=== PATIENT | male | born 1955 | race Caucasian/White ===

== ENCOUNTER 2019-08-19 10:40 | Outpatient (CLI) | payer MEDICARE, SELFPAY ==
--- NOTE | 2019-08-19 10:57 | USCV_ITS ---
Chepe Tobias Age: 64 Gender: M : 1955 Exam Date: 08/19/2019 11:01 Ordering Phys: Luis Schmid MD Technologist: Sage Ley Exam Location: [facility] [place] Indication: HISTORY: Lower extremity swelling. PROCEDURES: Bilateral duplex Venous Insufficiency study of the Deep and Superficial systems was carried out according to normal protocol with the patient in supine positon for deep system and dependent position for the superficial system. FINDINGS: All deep veins demonstrated compressibility without evidence of intraluminal thrombus or increased echogenicity. Spectral analysis of Doppler signals demonstrates normal response to compression maneuvers indicating patency without obstruction. Reflux determinations were made with the patient in the dependent position, the weight being on the contralateral leg. Vein measurements and reflux times are listed below were applicable. No notable reflux was seen at this time. The veins were found to be easily compressible with spontaneous blood flow. Non pulsatile flow pattern. CONCLUSIONS No evidence of DVT in the above-mentioned identifiable veins. No significant venous reflux in the above-mentioned veins Dr Nickolas Hood MD [facility] (Electronically Signed) Final Date: 20 August 2019 16:49 S
== END 2019-08-19 10:41 | disposition home or self-care (01) ==
LOC: RAD 10:50
PROVIDERS: Family Provider Family Medicine; PCP Family Medicine; Visit Provider Family Medicine
DX: I83.813 Varicose veins of bilateral lower extremities with pain (principal)
CPT/HCPCS: 93970

== ENCOUNTER 2019-09-15 13:29 | Outpatient (CLI) | payer MEDICARE, SELFPAY ==
--- NOTE | 2019-09-15 13:52 | MR_ITS ---
WS: [id number] MRI LUMBAR SPINE NONCONTRAST TECHNIQUE: Sagittal T1, T2 and STIR imaging. Axial T1 and T2 imaging. CLINICAL INFORMATION: BILATERAL LUMBAR RADICULOPATHY COMPARISON: MRI December 08, 2005 FINDINGS: Mild lumbar curve. No acute compression. Slight anterolisthesis L4 on L5. Disc bulging worse L5-S1 wi th a tiny annular tear. Slight anterolisthesis L4 on L5 measuring 2.7 mm is new since 2005. L1-2: Normal L2-3: Minimal annular bulging. Slight narrowing of the left subarticular recess. Mild left and no sig nificant right foraminal narrowing. Mild facet arthropathy. L3-4: No significant disc bulging. Mild facet arthropathy. Spinal canal and foramen are patent. L4-5: Slight anterolisthesis measuring 2.7 mm. Annular bulging with narrowing of the subarticular rec ess bilaterally. Slight impingement traversing L5 nerve roots. Moderate facet arthropathy. Mild left and no significant right foraminal narrowing. L5-S1: Small broad-based central disc protrusion with slight contact of the traversing left greater t torrez right S1 nerve roots. Spinal canal is patent. Mild facet arthropathy. Visualized pelvic bony structures: Normal. Paravertebral soft tissues: Normal. MR/MR lumbar spine wo con* [id number] IMPRESSION: 1. Mild lumbar curve. No acute compression. No high-grade central canal stenos is. 2. Slight anterolisthesis L4 on L5 measuring 2.7 mm is new since 2005. 3. Mild central canal stenosis L4-5 with slight narrowing of subarticular rece ss bilaterally and encroachment traversing L5 nerve roots. Moderate facet arthr opathy at this level. 4. Broad-based shallow central disc protrusion with slight contact of the left greater than right S1 nerve roots. This is similar in appearance to 2006.
== END 2019-09-15 13:30 | disposition home or self-care (01) ==
LOC: RADWPI 13:30
PROVIDERS: Family Provider Family Medicine; PCP Family Medicine; Visit Provider Family Medicine
DX: M54.16 Radiculopathy, lumbar region (principal); M48.061 Spinal stenosis, lumbar region without neurogenic claudication; M51.26 Other intervertebral disc displacement, lumbar region
CPT/HCPCS: 72148

== ENCOUNTER 2019-12-13 10:24 | Outpatient (RCR) | payer MEDICARE, SELFPAY | END 2019-12-18 23:59 | disposition home or self-care (01) | LOC: SPT 10:24 | PROVIDERS: PCP Family Medicine; Referring Provider Licensed Practical Nurse; Visit Provider Licensed Practical Nurse | DX: M51.16 Intervertebral disc disorders with radiculopathy, lumbar region (principal); M51.17 Intervertebral disc disorders with radiculopathy, lumbosacral region | CPT/HCPCS: 97110; 97161 ==

== ENCOUNTER 2019-12-13 12:53 | Outpatient (CLI) | payer MEDICARE, SELFPAY ==
--- NOTE | 2019-12-13 13:00 | XR_ITS ---
WS: [id number] LUMBAR SPINE FLEXION AND EXTENSION TECHNIQUE: 3 views of the lumbar spine: Lateral neutral, flexion, and extension views. CLINICAL INFORMATION: Low back pain COMPARISON: None. FINDINGS: Slight anterolisthesis L4 on L5 measuring 6 mm on the neutral view. This increases slightly on flexio n to 7.3 mm and decreases on extension to 6.8 mm. Disc space narrowing worse L4-L5 and L5-S1. Chronic appearing anterior wedging T11, T12 and L1. Moderate facet arthropathy L4-L5 and L5-S1. Mild bony fo raminal narrowing L5-S1. Aortic calcification. XR/XR lumbar spine f/e only [id number] IMPRESSION: 1. Grade 1 anterolisthesis L4 on L5 measuring 5.9 mm in the neutral view. Mild instability on flexion-extension. 2. Disc space narrowing worse L4-L5 and L5-S1. 3. Chronic anterior wedging at T11,T12 and L1.
== END 2019-12-13 12:54 | disposition home or self-care (01) ==
LOC: RADWPI 12:57
PROVIDERS: PCP Family Medicine; Visit Provider Licensed Practical Nurse
DX: M54.5 Low back pain (principal); M53.2X6 Spinal instabilities, lumbar region; M48.55XA Collapsed vertebra, not elsewhere classified, thoracolumbar region, initial encounter for fracture; X58.XXXA Exposure to other specified factors, initial encounter; M48.061 Spinal stenosis, lumbar region without neurogenic claudication
CPT/HCPCS: 72120

== ENCOUNTER 2019-12-19 06:00 | Outpatient (RCR) | payer MEDICARE, SELFPAY | END 2020-01-17 23:59 | disposition home or self-care (01) | LOC: SPT 06:00 | PROVIDERS: PCP Family Medicine; Visit Provider Licensed Practical Nurse | DX: M51.17 Intervertebral disc disorders with radiculopathy, lumbosacral region (principal) | CPT/HCPCS: 97110 ==

== ENCOUNTER 2020-02-03 10:52 | Outpatient (CLI) | payer MEDICARE, SELFPAY ==
--- NOTE | 2020-02-03 10:56 | MR_ITS ---
WS: [id number] MRI HEAD WITH CONTRAST TECHNIQUE: Sagittal T1, T2 axial, T2 axial FLAIR, axial susceptibility weighted imaging, axial diffus ion weighted images, and coronal T2 images were obtained. Pre and post-T1 axial and post T1 coronal i mages. ADC and FSPGR images. CLINICAL INFORMATION: INRACRANIAL ARACHNOID CYST COMPARISON: MRI and FINDINGS: No evidence of restricted diffusion to suggest acute ischemia. Ventricular system and basal cisterns are patent. Arachnoid cyst overlying the left frontal lobe extending to the frontoparietal junction. This extends inferiorly to the left middle cranial fossa. No abnormal gadolinium enhancement. Minimal mass effect on the underlying brain parenchyma. No midline shift. No hydrocephalus. No abnormal gado linium enhancement. Stable long-standing atrophy of the left anterior temporal lobe and left lateral frontal lobe including the operculum and insula. Arachnoid cyst measures 3.6 x 2.8 x 6.3 cm No hemosiderin on susceptibly weighted images. Normal optic chiasm and pituitary infundibulum. No abn ormal parenchymal enhancement. Normal dural venous sinuses. MR/MR head wo/w con [id number] IMPRESSION: 1. No evidence of restricted diffusion to suggest acute ischemia. 2. Minimal small vessel changes. Mild parenchymal volume loss. 3. Stable arachnoid cyst overlying the left frontoparietal convexity extending to the left middle cranial fossa unchanged. 4. No significant midline shift. No hydrocephalus. 5. No abnormal intracranial enhancement.
[2020-02-03 11:55] LABS: Blood Urea Nitrogen 12 mg/dL (8-23); Glomerular Filtration Rate 67.6 mL/min (90-130)
== END 2020-02-03 10:53 | disposition home or self-care (01) ==
PROVIDERS: PCP Family Medicine; Visit Provider Family Medicine
DX: G93.0 Cerebral cysts (principal)
CPT/HCPCS: 70553; 82565; 84520; A9579

== ENCOUNTER → 2020-03-28 08:11 | Outpatient (BNVA) | payer MEDICARE, SELFPAY | PROVIDERS: PCP Family Medicine; Referring Provider Family Medicine; Visit Provider Specialist | DX: M51.17 Intervertebral disc disorders with radiculopathy, lumbosacral region (principal); R25.2 Cramp and spasm; G62.9 Polyneuropathy, unspecified; Z87.891 Personal history of nicotine dependence | CPT/HCPCS: 99204 ==

== ENCOUNTER 2020-04-12 07:55 | Outpatient (CLI) | payer MEDICARE, SELFPAY ==
--- NOTE | 2020-04-12 08:00 | MR_ITS ---
WS: [id number] MRI CERVICAL SPINE NONCONTRAST TECHNIQUE: Sagittal T1, T2 and STIR imaging. Axial T2, gradient, and fiesta imaging. CLINICAL INFORMATION: M54.2 Cervicalgia COMPARISON: None. FINDINGS: Mild cervical curve. Straightening of the normal cervical lordosis. Mild disc bulging worse at C5-C6. Cord signal is normal. C2-C3: Normal. C3-C4: Mild disc osteophytic ridging. Mild left and no significant right foraminal narrowing. Mild fa cet arthropathy. Spinal canal is patent. C4-C5: Mild disc bulging with slight effacement of ventral thecal sac. Mild central canal stenosis. M oderate facet arthropathy. Mild right foraminal narrowing. C5-C6: Disc osteophytic complex with endplate ridging. Mild central canal stenosis with slight contac t of the cervical cord. Moderate bilateral bony foraminal narrowing with moderate facet arthropathy. Foraminal narrowing worse on the right. C6-C7: Mild disc bulging with slight effacement of ventral thecal sac. Mild right foraminal narrowing . Mild facet arthropathy. C7-T1: No significant disc bulging. Osteophytic ridging. Spinal canal and foramen are patent. Visualized brain stem structures: Normal. Prevertebral soft tissues: Normal. MR/MR cervical spin wo con* [id number] IMPRESSION: 1. Mild cervical curve. Straightening of the normal cervical lordosis. 2. Cord signal is normal. 3. Mild central canal stenosis C5-C6 with slight contact of the cervical cord. Moderate right greater than left bony foraminal narrowing at this level with m oderate facet arthropathy. 4. Mild central canal stenosis C4-5 with mild shallow central disc bulging. Mo derate right facet arthropathy at this level. 5. Mild right C6-7 bony foraminal narrowing.
--- NOTE | 2020-04-12 08:45 | XR_ITS ---
WS: [id number] Lumbar spine, 3 views, 04/12/2020 Clinical Data: see dx Comparison: Lateral lumbar spine, 12/13/2019. Findings: No compression fractures or subluxation is seen. There is disc space narrowing at L4-L5 and L5-S1. Th e transverse processes and SI joints are normal. There is an anterior subluxation of L4 on L5 of 0.6 cm. There is osteoarthritic spurring of the lower thoracic vertebral bodies. XR/XR lumbar spine 2-3V* [id number] Impression: 1. Anterolisthesis of L4 on L5 unchanged. 2. Degenerative disc narrowing at L4-L5 and L5-S1.
== END 2020-04-12 07:56 | disposition home or self-care (01) ==
LOC: RADSHAW 08:00
PROVIDERS: PCP Family Medicine; Visit Provider Specialist
DX: M54.2 Cervicalgia (principal); M51.17 Intervertebral disc disorders with radiculopathy, lumbosacral region; M48.02 Spinal stenosis, cervical region; M47.812 Spondylosis without myelopathy or radiculopathy, cervical region
CPT/HCPCS: 72100; 72141

== ENCOUNTER → 2020-05-28 11:35 | Outpatient (BNVA) | payer MEDICARE, SELFPAY | PROVIDERS: PCP Family Medicine; Visit Provider Specialist | DX: M51.17 Intervertebral disc disorders with radiculopathy, lumbosacral region (principal); G62.9 Polyneuropathy, unspecified; M43.10 Spondylolisthesis, site unspecified; R25.2 Cramp and spasm; Z87.891 Personal history of nicotine dependence | CPT/HCPCS: 95886; 95909; 99213 ==

== ENCOUNTER → 2020-06-13 12:14 | Outpatient (BNVA) | payer MEDICARE, SELFPAY | PROVIDERS: PCP Family Medicine; Referring Provider Specialist; Visit Provider Anesthesiology Pain Medicine | DX: M51.17 Intervertebral disc disorders with radiculopathy, lumbosacral region (principal); M54.9 Dorsalgia, unspecified; M54.2 Cervicalgia; F17.220 Nicotine dependence, chewing tobacco, uncomplicated | CPT/HCPCS: 99204 ==

== ENCOUNTER → 2020-07-17 10:54 | Outpatient (BNVA) | payer MEDICARE, SELFPAY | PROVIDERS: PCP Family Medicine; Visit Provider Anesthesiology Pain Medicine | DX: M54.9 Dorsalgia, unspecified (principal); M51.17 Intervertebral disc disorders with radiculopathy, lumbosacral region; F17.220 Nicotine dependence, chewing tobacco, uncomplicated | CPT/HCPCS: 99213 ==

== ENCOUNTER → 2020-10-09 10:54 | Outpatient (BNVA) | payer MEDICARE, SELFPAY | PROVIDERS: PCP Family Medicine; Visit Provider Anesthesiology Pain Medicine | DX: G62.9 Polyneuropathy, unspecified (principal); M54.2 Cervicalgia; M43.10 Spondylolisthesis, site unspecified; M51.17 Intervertebral disc disorders with radiculopathy, lumbosacral region; M54.9 Dorsalgia, unspecified; F17.220 Nicotine dependence, chewing tobacco, uncomplicated | CPT/HCPCS: 99214 ==

== ENCOUNTER → 2020-11-28 13:47 | Outpatient (BNVA) | payer MEDICARE, SELFPAY | PROVIDERS: PCP Family Medicine; Visit Provider Specialist | DX: M51.17 Intervertebral disc disorders with radiculopathy, lumbosacral region (principal); F17.220 Nicotine dependence, chewing tobacco, uncomplicated | CPT/HCPCS: 99213 ==

== ENCOUNTER 2021-02-26 12:42 | Outpatient (CLI) | payer MEDICARE, SELFPAY ==
--- NOTE | 2021-02-26 13:31 | MR_ITS ---
WS: [id number] MRI BRAIN WITH AND WITHOUT CONTRAST HISTORY: ARACHNOID CYST COMPARISON: 02/03/2020 TECHNIQUE: Multiplanar imaging performed through the brain with MultiHance 20 ml's IV. No acute infarcts are seen. Gardner-white matter differentiation is well preserved. No susceptibility artifacts or prior lacunar infarcts. Ventricles are normal size. There is a large arachnoid cyst centered in the LEFT middle cranial fossa extending into the frontoparietal junction. There is slight mass effect upon the adjacent brain but no increase in size or enhancement. Cyst measures 6.6 x 4.7 x 4.1 cm. Not significantly changed. Ther e is very slight shift of midline structures to the RIGHT of midline by less than 2 mm. Again noted i s mild atrophy of the anterior LEFT temporal and LEFT frontal lobes. Clivus and pituitary gland are normal. Visualized posterior fossa and brainstem are also normal. No enhancing masses are identified. Blush-like area of enhancement noted in the inferior LEFT tempora l lobe is consistent with a venous angioma. Dural venous sinuses are normal. Paranasal sinuses: Well aerated with no significant disease. Mastoid air cells: Normal. Calvarium and scalp: Normal. MR/MR head wo/w con [id number] IMPRESSION: 1. No enhancing masses or prior infarct. 2. Large chronic LEFT middle cranial fossa arachnoid cyst with slight mass eff ect upon the brain. Long-standing atrophy involving a portion of the LEFT tempo ral and frontal lobes. 3. No hydrocephalus.
[2021-02-26] MEDS: gadobenate dimeglumine 20 mL vial IV (14:17)
== END 2021-02-26 12:43 | disposition home or self-care (01) ==
PROVIDERS: PCP Family Medicine; Visit Provider Family Medicine
DX: G93.0 Cerebral cysts (principal)
CPT/HCPCS: 70553; A9577

== ENCOUNTER → 2021-05-28 12:59 | Outpatient (BNVA) | payer MEDICARE, SELFPAY | PROVIDERS: PCP Family Medicine; Visit Provider Physician Assistant | DX: M51.17 Intervertebral disc disorders with radiculopathy, lumbosacral region (principal) | CPT/HCPCS: 72110 ==

== ENCOUNTER → 2021-06-17 10:48 | Outpatient (BNVA) | payer MEDICARE, SELFPAY | PROVIDERS: PCP Family Medicine; Visit Provider Specialist | DX: G30.9 Alzheimer's disease, unspecified (principal); F02.80 Dementia in other diseases classified elsewhere, unspecified severity, without behavioral disturbance, psychotic disturbance, mood disturbance, and anxiety; G93.0 Cerebral cysts; R25.2 Cramp and spasm; M51.17 Intervertebral disc disorders with radiculopathy, lumbosacral region | CPT/HCPCS: 96116; 99214; 99215 ==

== ENCOUNTER 2021-06-20 06:00 | Outpatient (RCR) | payer MEDICARE, SELFPAY | END 2021-06-26 23:59 | disposition home or self-care (01) | LOC: SPT 06:00 | PROVIDERS: PCP Family Medicine; Referring Provider Physician Assistant; Visit Provider Physician Assistant | DX: M51.37 Other intervertebral disc degeneration, lumbosacral region (principal) | CPT/HCPCS: 97110; 97162 ==

== ENCOUNTER → 2021-09-10 08:40 | Outpatient (BNVA) | payer MEDICARE, SELFPAY | PROVIDERS: PCP Family Medicine; Visit Provider Anesthesiology Pain Medicine | DX: M51.17 Intervertebral disc disorders with radiculopathy, lumbosacral region (principal); M79.604 Pain in right leg; M79.605 Pain in left leg; Z79.891 Long term (current) use of opiate analgesic | CPT/HCPCS: 99214 ==

== ENCOUNTER → 2021-12-12 14:00 | Outpatient (BNVA) | payer MEDICARE, SELFPAY | PROVIDERS: PCP Family Medicine; Visit Provider Physician Assistant | DX: M43.16 Spondylolisthesis, lumbar region (principal) | CPT/HCPCS: 99213 ==

== ENCOUNTER → 2021-12-23 08:55 | Outpatient (BNVA) | payer MEDICARE, SELFPAY | PROVIDERS: PCP Family Medicine; Visit Provider Anesthesiology Pain Medicine | DX: M51.17 Intervertebral disc disorders with radiculopathy, lumbosacral region (principal); M79.604 Pain in right leg; M79.605 Pain in left leg; Z79.891 Long term (current) use of opiate analgesic; Z87.891 Personal history of nicotine dependence | CPT/HCPCS: 99214 ==

== ENCOUNTER 2022-06-23 10:48 | Outpatient (CLI) | payer MEDICARE, SELFPAY ==
--- NOTE | 2022-06-23 11:07 | MR_ITS ---
WS: [id number] MRI HEAD WITH CONTRAST TECHNIQUE: Sagittal T1, T2 axial, T2 axial FLAIR, axial susceptibility weighted imaging, axial diffus ion weighted images, and coronal T2 images were obtained. Pre and post-T1 axial and post T1 coronal i mages. ADC and FSPGR images. CLINICAL INFORMATION: OTHER DISORDERS OF BRAIN COMPARISON: MRI February 26, 2021 and MRI February 03, 2020 FINDINGS: No evidence of restricted diffusion to suggest acute ischemia. Ventricular system and basal cisterns are patent. No change in the previously described arachnoid cyst within the LEFT middle cranial fossa extending to the frontoparietal junction. Associated mild mass effect on the underlying brain parenc hyma unchanged. Arachnoid cyst today measures approximately 4.7 x 3.9 x 6.3 cm AP by transverse by cr aniocaudal. Associated atrophy of the underlying anterior LEFT temporal lobe and LEFT frontal lobes. Incidental benign venous angioma inferior LEFT temporal lobe unchanged. No hydrocephalus. Normal posterior fossa. Normal vascular flow voids at the skull base. Paranasal sinuses are well aera tristian. Mastoid air cells well aerated. No hemosiderin on susceptibly weighted images. Normal optic reji sm and pituitary infundibulum. No abnormal intracranial enhancement. MR/MR head wo/w con [id number] IMPRESSION: 1. Stable arachnoid cyst overlying the left frontoparietal convexity extending to the left middle cranial fossa unchanged measuring 4.7 x 3.9 x 6.3 cm 2. No evidence of restricted diffusion to suggest acute ischemia. 3. Stable benign venous angioma LEFT inferior temporal lobe. 4. No significant interval changes.
[2022-06-23] MEDS: gadobenate dimeglumine 20 mL vial IV (11:52)
== END 2022-06-23 10:49 | disposition home or self-care (01) ==
PROVIDERS: PCP Family Medicine; Visit Provider Family Medicine
DX: G93.0 Cerebral cysts (principal)
CPT/HCPCS: 70553; A9577

== ENCOUNTER 2022-09-09 14:08 | Outpatient (CLI) | payer MEDICARE, SELFPAY ==
--- NOTE | 2022-09-09 | XR_ITS ---
WS: [id number] Exam: XR lumbar spine f/e only [id number] Date/Time of Exam: 09/09/2022 3:03 PM Reason For Exam: SPONDYLOLISTHESIS LUMBAR REGION/ ABSENCE OF SPINAL STABILITY Comparison 05/28/2021. There is degenerative anterolisthesis of L4 on L5 with about 1 cm forward movement of L4 most accentu ated during flexion. No other sign of lumbar instability. Degenerative disc narrowing at L4-5. Facet arthropathy at L4-5 and L5-S1. Remaining posterior elements are intact. XR/XR lumbar spine f/e only [id number] IMPRESSION: 1. 1 cm degenerative anterolisthesis of L4 on L5 most accentuated during flexio n. No other sign of the lumbar instability. 2. Degenerative changes as detailed above.
--- NOTE | 2022-09-09 | MR_ITS ---
WS: [id number] MRI LUMBAR SPINE NONCONTRAST HISTORY: SPINAL STENOSIS COMPARISON: 09/15/2019 TECHNIQUE: Sagittal and axial multisequence imaging is submitted. L4 anterolisthesis by 3 mm similar to the prior study. No fracture or marrow edema. Mild disc desicca tion at L4-5 and L5-S1. Conus terminates normally at L1. L1-L2: Normal. L2-L3: Normal. L3-L4: Mild ligamentum flavum and facet arthritis. No stenosis. L4-L5: Annular disc bulging narrowing the central canal and subarticular recesses. Mild ligamentum fl avum disease and facet arthritis encroaching upon the thecal sac. Very slight impingement upon the tr aversing L5 nerve roots. Similar to the prior study. No progression. L5-S1: Mild annular disc bulging with central disc protrusion and annular fissure. Disc contacts but does not displace the traversing S1 nerve roots. Contact on the nerve roots has slightly improved sin ce 2019. Mild bilateral facet arthritis. Paravertebral soft tissues are negative. MR/MR lumbar spine wo con* [id number] IMPRESSION: 1. Grade 1 anterolisthesis of L4 is unchanged. 2. Minimal central and subarticular recess encroachment at L4-5. Similar to th e prior study. Mild encroachment upon the traversing L5 nerve roots. 3. Central disc protrusion at L5-S1 contacts but does not displace the S1 nerv e roots. Less contact on the nerve roots as compared to 09/15/2019.
== END 2022-09-09 14:09 | disposition home or self-care (01) ==
PROVIDERS: PCP Family Medicine; Visit Provider Anesthesiology Pain Medicine
DX: M43.16 Spondylolisthesis, lumbar region (principal); M51.27 Other intervertebral disc displacement, lumbosacral region
CPT/HCPCS: 72120; 72148

== ENCOUNTER 2023-10-10 13:47 | Inpatient (IN) | payer MEDICARE, SELFPAY ==
[2023-10-10] VITALS (45 sets, daily range): BP systolic 94–149; BP diastolic 44–81; PULSE 56–90; RESP 8–26; TEMP 36.6–36.8; O2SAT 91–100; BMI 32.5; BMI 33.6
--- NOTE | 2023-10-10 13:53 | ECG_ITS ---
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 Measurements Intervals [place] Rate: 74 P: 56 [place]: 161 QRS: 20 QRSD: 92 T: 68 QT: 390 QTc: 434 Interpretive Statements SINUS RHYTHM No previous ECG available for comparison Electronically Signed On 10-10-2023 15:57:38 CDT by Elvis Fuller M.D. [email or web address]
[2023-10-10 13:59] LABS: Basophils # 0.1 10^3/uL (0.0-0.1); Basophils % 0.8 %; Eosinophils # 0.2 10^3/uL (0.0-0.8); Eosinophils % 1.4 %; Hematocrit 38.4 % (37-53); Lymphocytes # 2.1 10^3/uL (0.8-4.8); Lymphocytes % 15.4 %; Mean Corpuscular HGB Conc 31.5 g/dL (30-55); Mean Corpuscular Volume 98.5 fl (82-101); Mean Platelet Volume 10.2 fL (7.4-10.4); Monocytes # 0.9 10^3/uL (0.2-0.9); Monocytes % 6.4 %; Neutrophils # 10.06 10^3/uL (1.8-7.7); Neutrophils % 75.3 %; Nucleated Red Blood Cells % 0 %; Platelet Count 484 10^3/cmm (157-399); Red Cell Distribution Width 11.9 % (12.1-15.1); White Blood Count 13.38 10^3/uL (3.29-11.43)
--- NOTE | 2023-10-10 14:02 | CTR_ITS ---
PROCEDURE INFORMATION: Exam: CT Abdomen And Pelvis With Contrast Exam date and time: 10/10/2023 2:39 PM Age: 68 years old Clinical indication: Abdominal pain; Epigastric; Prior surgery; Surgery date: 6+ months; Surgery type: Gb; Additional info: Epigastric pain TECHNIQUE: Imaging protocol: Computed tomography of the abdomen and pelvis with contrast. Radiation optimization: All CT scans at this facility use at least one of these dose optimization techniques: automated exposure control; mA and/or kV adjustment per patient size (includes targeted exams where dose is matched to clinical indication); or iterative reconstruction. Contrast material: OMNI 350; Contrast volume: 100 ml; Contrast route: INTRAVENOUS (IV); COMPARISON: CT abdomen pelvis w con* [id number] 03/02/2018 5:43 PM RADIATION DOSE METRICS: Total DLP (mGy-cm): 974.79 FINDINGS: Liver: 1.5 cm hemangioma at the liver dome is similar to the prior study. Gallbladder and bile ducts: The gallbladder has been removed. Pancreas: Normal. No ductal dilation. Spleen: Normal. No splenomegaly. Adrenal glands: Normal. No mass. Kidneys and ureters: Bilateral renal cysts have benign features the larger of which measures 16 mm in the left kidney. Stomach and bowel: There is mucosal thickening of the distal stomach and proximal duodenum with associated mesenteric inflammatory stranding. Contour irregularity of the mucosa in this region raises concern for ulcer formation. There is diverticulosis of the colon without evidence of diverticulitis. Appendix: No evidence of appendicitis. Intraperitoneal space: See Stomach and bowel finding. Vasculature: Unremarkable. No abdominal aortic aneurysm. Lymph nodes: There are calcified mediastinal and perihilar lymph nodes consistent with prior granulomatous exposure. Urinary bladder: Unremarkable as visualized. Reproductive: Unremarkable as visualized. Bones/joints: Unremarkable. No acute fracture. Soft tissues: Unremarkable. CT/CT abdomen pelvis w con* [id number] IMPRESSION: Mucosal thickening of the distal stomach and proximal duodenum with associated mesenteric inflammatory stranding consistent with nonspecific gastritis/enteritis. There is contour irregularity of the mucosa in these regions concerning for ulcer formation.
[2023-10-10] MEDS: ondansetron 2 mg/ML SDV 2 mL 4 MG IVP (14:12)
[2023-10-10] MEDS: sodium chloride 0.9% 1,000 ML 999 ML IV (14:12)
--- NOTE | 2023-10-10 14:14 | ED_ITS ---
Documented by User: ALANIS Goodrich 10/10/23 22:14 HPI - Abdominal Pain 2 General: Chief Complaint: Abdominal Pain Stated Complaint: EPIG PAIN Time Seen by Provider: 10/10/23 13:48 Source: patient and family ( - primary historian) Mode of arrival: EMS Limitations: no limitations History of Present Illness: Patient is a 68-year-old male who presents to the emergency department via EMS due to epigastric pain onset intermittently for the past 2 weeks. serves as the primary historian, and was who called the ambulance after she noticed today that he had a loose stool that was black and tarry. She states the patient had been complaining about the pain on and off for the past couple weeks, and when she asked him about his black tarry stool today, he had indicated to her that they have been like this way for a while. He is having associated nausea and vomiting, and has been increasingly weak. states that he is due for a colonoscopy later this year, as his last one 10 years ago was normal. She does note that he is a chronic user of ibuprofen due to a back injury he suffered in [place]. He is also on tramadol for this back pain. Patient has early onset Alzheimer's according to , and is unable to provide any more history or review of systems. denies history of EGD or diagnosed stomach ulcers. Bedside Hemoccult testing on arrival grossly positive. Denies any chest pain, breathing difficulties, palpitations, cardiac history, or any other symptoms at this time. MD elicited complaint: abdominal pain Onset (ago): week(s) Pain Consistency: intermittent Location: Epigastric Radiation: none Migration to: no migration Exacerbating factors: nothing Relieving factors: nothing Associated Symptoms: Reports anorexia, change in stool character, loose stools, melena, nausea and vomiting; Denies chills, dysuria and fever(s) Review of Systems 2 General: Reports: 10 or more systems reviewed and unremarkable except in HPI and below Const: Reports: change in appetite and malaise; Denies: fever(s), chills, change in weight or diaphoresis ENMT: Denies: throat pain or hoarseness Card: Denies: chest pain, palpitations or lightheadedness Resp: Denies: dyspnea, productive cough or wheezing GI: Reports: abdominal pain, nausea, vomiting, change in stool character and melena : Denies: flank pain, difficulty urinating, dysuria, urinary frequency or urinary urgency Musc: Denies: neck pain or back pain Skin/Breast: Denies: rash or new lesions Neuro: Denies: headache(s) or dizziness PFSH ED 2 PFSH: Medical History (Updated 10/12/23 @ 00:01 by YONI Vazquez) Spondylolisthesis, acquired Intervertebral disc disorder with radiculopathy of lumbosacral region Surgical History History of cholecystectomy Family History Family/Other Heart disease Social History Smoking and tobacco/nicotine status: former use of tobacco/nicotine Alcohol intake: former Substance/Drug Use: never Household members: significant other Marital status: Current occupational status: disabled Physical Exam 2 Const: COMMON NORMALS: no acute distress, average body habitus, patient oriented x3, no limitations, healthy appearing, alert and well nourished G ENERAL APPEARANCE: cooperative and comfortable ORIENTATION/CONSCIOUSNESS: Yes awake HENMT: COMMON NORMALS: normocephalic, atraumatic, hearing grossly normal bilaterally, external ears normal, Normal external nose present, Normal nasal mucous membranes and turbinates present and moist oral mucous membranes HEAD & SCALP: normocephalic and atraumatic NOSE: Normal external nose present and Normal nasal mucous membranes and turbinates present EXTERNAL EAR: Yes external ears normal Eye: COMMON NORMALS: Equal, round and reactive pupils present, EOMs intact bilaterally, conjunctivae normal and normal visual benedict by confrontation C ONJUNCTIVA: Yes conjunctivae normal PUPIL: Yes Equal, round and reactive pupils present Neck/C-Spine: COMMON NORMALS: full ROM, supple, no meningeal signs and no JVD Resp: COMMON NORMALS: normal respiratory effort, No retractions, No use of accessory muscles and clear to auscultation bilaterally AUSCULTATION: clear to auscultation bilaterally, no crackles, no rales, no rhonchi and no wheezes Cardio: COMMON NORMALS: no JVD, regular rate, regular rhythm, S1 normal heart sound present, S2 normal heart sound present, No gallops present (Cardio), No clicks present (Cardio), No murmurs present (Cardio), No rub (Cardio) and Peripheral pulses 2+ throughout RATE: regular rate RHYTHM: regular rhythm HEART SOUNDS: S1 normal heart sound present and S2 normal heart sound present PERIPHERAL PULSES: Peripheral pulses 2+ throughout GI: COMMON NORMALS: Normal to inspection, nondistended, normoactive bowel sounds present, Soft to palpation, non-tender, No hepatosplenomegaly present and no masses AUSCULTATION: Yes normoactive bowel sounds PALPATION: Yes Soft to palpation, No Guarding due to palpation present (GI), No Rigid due to palpation and Yes No hepatosplenomegaly present RECTAL EXAM: Yes visual inspection normal, Yes normal sphincter tone, Yes heme positive stool 3+, No hemorrhoids and Yes other (Perirectal dried blood noted) : COMMON NORMALS: Yes no CVA tenderness BLADDER/KIDNEY EXAM: Yes no CVA tenderness Back/Pelvis: COMMON NORMALS: no CVA tenderness Extremity: COMMON NORMALS: normal to inspection and full ROM Neuro: COMMON NORMALS: patient oriented x3, moves all extremities, no focal motor deficits and no sensory deficits noted SENSORIUM/ORIENTATION: Yes alert MENINGEAL SIGNS: Yes no meningeal signs Psych: COMMON NORMALS: mental status grossly normal, cooperative and speech normal SPEECH: Yes normal speech Skin: COMMON NORMALS: no rashes or lesions noted GENERAL SKIN EXAM: no rashes or lesions noted Course 2 Vital Signs: Vital signs: Vital Signs Temperature 98.4 F 10/11/23 10:30 Pulse Rate 81 10/11/23 12:36 Respiratory Rate 22 H 10/11/23 09:45 Blood Pressure 132/74 10/11/23 12:36 Pulse Oximetry 96 10/11/23 12:36 Oxygen Delivery Me thod Room Air 10/11/23 08:31 MDM - Abdominal Pain Lab Data 10/11/23 03:56 10/11/23 03:56 Labs/Radiology: Radiology Impressions Abdomen/Pelvis CT 10/10/23 14:02 IMPRESSION: Mucosal thickening of the distal stomach and proximal duodenum with associated mesenteric inflammatory stranding consistent with nonspecific gastritis/enteritis. There is contour irregularity of the mucosa in these regions concerning for ulcer formation. Laboratory Results WBC 13.38 10^3/uL (3.29-11.43) H 10/10/23 13:53 RBC 3.90 10^6/uL (3.85-5.65) 10/10/23 13:53 Hgb 12.10 g/dL (11.27-16.99) 10/10/23 13:53 Hct 38.4 % (37-53) 10/10/23 13:53 MCV 98.5 fl (82-101) 10/10/23 13:53 MCH 31.0 pg (27-33) 10/10/23 13:53 MCHC 31.5 g/dL (30-55) 10/10/23 13:53 RDW 11.9 % (12.1-15.1) L 10/10/23 13:53 Plt Count 484 10^3/cmm (157-399) H 10/10/23 13:53 MPV 10.2 fL (7.4-10.4) 10/10/23 13:53 Neut % (Auto) 75.3 % 10/10/23 13:53 Lymph % (Auto) 15.4 % 10/10/23 13:53 Gentry % (Auto) 6.4 % 10/10/23 13:53 Eos % (Auto) 1.4 % 10/10/23 13:53 Baso % (Auto) 0.8 % 10/10/23 13:53 Neut # (Auto) 10.06 10^3/uL (1.8-7.7) H 10/10/23 13:53 Lymph # (Auto) 2.1 10^3/uL (0.8-4.8) 10/10/23 13:53 Gentry # (Auto) 0.9 10^3/uL (0.2-0.9) 10/10/23 13:53 Eos # (Auto) 0.2 10^3/uL (0.0-0.8) 10/10/23 13:53 Baso # (Auto) 0.1 10^3/uL (0.0-0.1) 10/10/23 13:53 Nucleated RBC % (auto) 0 % 10/10/23 13:53 Nucleated RBCs # 0.0 /100WBC 10/10/23 13:53 PT 14.50 SECONDS (12.1-14.9) 10/10/23 14:56 INR 1.09 (0.8-1.2) 10/10/23 14:56 APTT 30.1 SECONDS (23.9-36.7) 10/10/23 14:56 Sodium 140 mmol/L (136-145) 10/10/23 13:53 Sodium 142 mmol/L (136-145) 10/10/23 13:53 Potassium 5.7 mmol/L (3.5-5.1) H 10/10/23 13:53 Potassium 6.0 mmol/L (3.5-5.1) H 10/10/23 13:53 Chloride 107 mmol/L (98-107) 10/10/23 13:53 Chloride 109 mmol/L (98-107) H 10/10/23 13:53 Carbon Dioxide 21 mmol/L (22-29) L 10/10/23 13:53 Carbon Dioxide 22 mmol/L (22-29) 10/10/23 13:53 Anion Gap 17.0 (5-19) 10/10/23 13:53 Anion Gap 17.7 (5-19) 10/10/23 13:53 BUN 44 mg/dL (8-23) H 10/10/23 13:53 BUN 44 mg/dL (8-23) H 10/10/23 13:53 Creatinine 1.2 mg/dL (0.7-1.2) 10/10/23 13:53 Creatinine 1.2 mg/dL (0.7-1.2) 10/10/23 13:53 GFR Calculation 60.4 mL/min (90-130) L 10/10/23 13:53 GFR Calculation 60.4 mL/min (90-130) L 10/10/23 13:53 Glucose 106 mg/dL (65-115) 10/10/23 13:53 Glucose 118 mg/dL (65-115) H 10/10/23 13:53 Calculated Osmolality 302 mOsm/kg (285-295) H 10/10/23 13:53 Calculated Osmolality 306 mOsm/kg (285-295) H 10/10/23 13:53 Calcium 9.1 mg/dL (8.5-10.5) 10/10/23 13:53 Calcium 9.2 mg/dL (8.5-10.5) 10/10/23 13:53 Iron 60 ug/dL (59-158) 10/10/23 13:53 TIBC 298 mcg/dl 10/10/23 13:53 % Saturation 20.1 % (20-50) 10/10/23 13:53 Unsat Iron Binding 238 ug/dL (112-347) 10/10/23 13:53 Total Bilirubin 0.3 mg/dL (0.15-1.2) 10/10/23 13:53 AST 16 U/L (0-40) 10/10/23 13:53 ALT 18 U/L (0-41) 10/10/23 13:53 Alkaline Phosphatase 95 U/L (40-130) 10/10/23 13:53 Ammonia 24 umol/L (16-60) 10/10/23 14:56 Total Protein 7.1 g/dL (6.6-8.7) 10/10/23 13:53 Albumin 4.0 g/dL (3.5-5.2) 10/10/23 13:53 Globulin 3.1 g/dL (1.3-4.6) 10/10/23 13:53 Lipase 70 U/L (13-60) H 10/10/23 13:53 Vitamin B12 1557 pg/mL (232-1245) H 10/10/23 13:53 TSH 0.75 uIU/mL (0.27-4.20) 10/10/23 13:53 Blood Type O Positive 10/10/23 14:56 Rho(D) Type Rh positive 10/10/23 14:56 Antibody Screen Negative 10/10/23 14:56 Crossmatch See Detail 10/10/23 14:56 All radiology interpretation(s) finalized by discharge Discharge Plan Discharge Patient Disposition: Admitted As Inpatient Admit Provider: Paul Rodríguez Clinical Impression: Acute upper GI bleed, Hyperkalemia Condition: Stable Discharge Diet: As Directed Discharge Activity: Resume usual activity and Increase activity as tolerated Sign Out Sign Out Data: Patient Sign Out occurred on 10/10/23 at 14:37. Patient's care was discussed, and care was transferred from ALANIS Goodrich to Charlie Saenz DO. Coding Level of Care Code ED Microchip Specialist for Chg Fwd Documented by User: Charlie Saenz DO 10/12/23 06:31 HPI - Abdominal Pain 2 General: Chief Complaint: Abdominal Pain Stated Complaint: EPIG PAIN Time Seen by Provider: 10/10/23 13:48 PFSH ED 2 PFSH: Medical History (Updated 10/12/23 @ 00:01 by YONI Vazquez) Spondylolisthesis, acquired Intervertebral disc disorder with radiculopathy of lumbosacral region Surgical History History of cholecystectomy Family History Family/Other Heart disease Social History Smoking and tobacco/nicotine status: former use of tobacco/nicotine Alcohol intake: former Substance/Drug Use: never Household members: significant other Marital status: Current occupational status: disabled Course 2 Vital Signs: Vital signs: Vital Signs Temperature 98.4 F 10/11/23 10:30 Pulse Rate 81 10/11/23 12:36 Respiratory Rate 22 H 10/11/23 09:45 Blood Pressure 132/74 10/11/23 12:36 Pulse Oximetry 96 10/11/23 12:36 Oxygen Delivery Me thod Room Air 10/11/23 08:31 MDM - Abdominal Pain Medical Decision Making Care assumed from Rajiv THAPA. Patient has acute duodenal bleed. Patient has been typed and crossed started on Protonix keep NPO. Consult surgery for EGD in the morning. Discussed with hospitalist orders written Medical Records I reviewed the patient's medical records. Lab Data I reviewed the patient's lab results. 10/11/23 03:56 10/11/23 03:56 Labs/Radiology: Radiology Impressions Abdomen/Pelvis CT 10/10/23 14:02 IMPRESSION: Mucosal thickening of the distal stomach and proximal duodenum with associated mesenteric inflammatory stranding consistent with nonspecific gastritis/enteritis. There is contour irregularity of the mucosa in these regions concerning for ulcer formation. Laboratory Results WBC 13.38 10^3/uL (3.29-11.43) H 10/10/23 13:53 RBC 3.90 10^6/uL (3.85-5.65) 10/10/23 13:53 Hgb 12.10 g/dL (11.27-16.99) 10/10/23 13:53 Hct 38.4 % (37-53) 10/10/23 13:53 MCV 98.5 fl (82-101) 10/10/23 13:53 MCH 31.0 pg (27-33) 10/10/23 13:53 MCHC 31.5 g/dL (30-55) 10/10/23 13:53 RDW 11.9 % (12.1-15.1) L 10/10/23 13:53 Plt Count 484 10^3/cmm (157-399) H 10/10/23 13:53 MPV 10.2 fL (7.4-10.4) 10/10/23 13:53 Neut % (Auto) 75.3 % 10/10/23 13:53 Lymph % (Auto) 15.4 % 10/10/23 13:53 Gentry % (Auto) 6.4 % 10/10/23 13:53 Eos % (Auto) 1.4 % 10/10/23 13:53 Baso % (Auto) 0.8 % 10/10/23 13:53 Neut # (Auto) 10.06 10^3/uL (1.8-7.7) H 10/10/23 13:53 Lymph # (Auto) 2.1 10^3/uL (0.8-4.8) 10/10/23 13:53 Gentry # (Auto) 0.9 10^3/uL (0.2-0.9) 10/10/23 13:53 Eos # (Auto) 0.2 10^3/uL (0.0-0.8) 10/10/23 13:53 Baso # (Auto) 0.1 10^3/uL (0.0-0.1) 10/10/23 13:53 Nucleated RBC % (auto) 0 % 10/10/23 13:53 Nucleated RBCs # 0.0 /100WBC 10/10/23 13:53 PT 14.50 SECONDS (12.1-14.9) 10/10/23 14:56 INR 1.09 (0.8-1.2) 10/10/23 14:56 APTT 30.1 SECONDS (23.9-36.7) 10/10/23 14:56 Sodium 140 mmol/L (136-145) 10/10/23 13:53 Sodium 142 mmol/L (136-145) 10/10/23 13:53 Potassium 5.7 mmol/L (3.5-5.1) H 10/10/23 13:53 Potassium 6.0 mmol/L (3.5-5.1) H 10/10/23 13:53 Chloride 107 mmol/L (98-107) 10/10/23 13:53 Chloride 109 mmol/L (98-107) H 10/10/23 13:53 Carbon Dioxide 21 mmol/L (22-29) L 10/10/23 13:53 Carbon Dioxide 22 mmol/L (22-29) 10/10/23 13:53 Anion Gap 17.0 (5-19) 10/10/23 13:53 Anion Gap 17.7 (5-19) 10/10/23 13:53 BUN 44 mg/dL (8-23) H 10/10/23 13:53 BUN 44 mg/dL (8-23) H 10/10/23 13:53 Creatinine 1.2 mg/dL (0.7-1.2) 10/10/23 13:53 Creatinine 1.2 mg/dL (0.7-1.2) 10/10/23 13:53 GFR Calculation 60.4 mL/min (90-130) L 10/10/23 13:53 GFR Calculation 60.4 mL/min (90-130) L 10/10/23 13:53 Glucose 106 mg/dL (65-115) 10/10/23 13:53 Glucose 118 mg/dL (65-115) H 10/10/23 13:53 Calculated Osmolality 302 mOsm/kg (285-295) H 10/10/23 13:53 Calculated Osmolality 306 mOsm/kg (285-295) H 10/10/23 13:53 Calcium 9.1 mg/dL (8.5-10.5) 10/10/23 13:53 Calcium 9.2 mg/dL (8.5-10.5) 10/10/23 13:53 Iron 60 ug/dL (59-158) 10/10/23 13:53 TIBC 298 mcg/dl 10/10/23 13:53 % Saturation 20.1 % (20-50) 10/10/23 13:53 Unsat Iron Binding 238 ug/dL (112-347) 10/10/23 13:53 Total Bilirubin 0.3 mg/dL (0.15-1.2) 10/10/23 13:53 AST 16 U/L (0-40) 10/10/23 13:53 ALT 18 U/L (0-41) 10/10/23 13:53 Alkaline Phosphatase 95 U/L (40-130) 10/10/23 13:53 Ammonia 24 umol/L (16-60) 10/10/23 14:56 Total Protein 7.1 g/dL (6.6-8.7) 10/10/23 13:53 Albumin 4.0 g/dL (3.5-5.2) 10/10/23 13:53 Globulin 3.1 g/dL (1.3-4.6) 10/10/23 13:53 Lipase 70 U/L (13-60) H 10/10/23 13:53 Vitamin B12 1557 pg/mL (232-1245) H 10/10/23 13:53 TSH 0.75 uIU/mL (0.27-4.20) 10/10/23 13:53 Blood Type O Positive 10/10/23 14:56 Rho(D) Type Rh positive 10/10/23 14:56 Antibody Screen Negative 10/10/23 14:56 Crossmatch See Detail 10/10/23 14:56 Discharge Plan Discharge Patient Disposition: Admitted As Inpatient Admit Provider: Paul Rodríguez Clinical Impression: Acute upper GI bleed, Hyperkalemia Condition: Stable Discharge Diet: As Directed Discharge Activity: Resume usual activity and Increase activity as tolerated Sign Out Sign Out Data: Patient Sign Out occurred on 10/10/23 at 14:37. Patient's care was discussed, and care was transferred from ALANIS Goodrich to Charlie Saenz DO. Coding Level of Care Code ED Microchip Specialist for [facility]
--- NOTE | 2023-10-10 14:15 | PC.PHAR ---
pts verified pts medications
[2023-10-10 14:24] LABS: Alanine Aminotransferase 18 U/L (0-41); Alkaline Phosphatase 95 U/L (40-130); Aspartate Amino Transferase 16 U/L (0-40); Blood Urea Nitrogen 44 mg/dL (8-23); Calcium 9.2 mg/dL (8.5-10.5); Carbon Dioxide 22 mmol/L (22-29); Chloride 109 mmol/L (98-107); Creatinine Clr Calc Pharmacy 69.5663; Globulin 3.1 g/dL (1.3-4.6); Glomerular Filtration Rate 60.4 mL/min (90-130); Glucose 118 mg/dL (65-115); Lipase 70 U/L (13-60); Osmolality Calculated 306 mOsm/kg (285-295); Sodium 142 mmol/L (136-145); Total Bilirubin 0.3 mg/dL (0.15-1.2); Total Protein 7.1 g/dL (6.6-8.7)
[2023-10-10] MEDS: iohexol 350 mg/mL 500 mL Btl (per mL) IV (14:46)
[2023-10-10 15:20] LABS: INR 1.09 (0.8-1.2)
[2023-10-10 15:21] LABS: Partial Thromboplastin Time 30.1 SECONDS (23.9-36.7)
[2023-10-10 15:25] LABS: Ammonia 24 umol/L (16-60)
[2023-10-10] MEDS: insulin regular-human 100 units/1 mL 10 UNIT IVP (15:27)
[2023-10-10] MEDS: calcium gluconate 0.1 gm/mL 10% SDV 10mL 1 GM IVP (15:27)
[2023-10-10] MEDS: dextrose 10% 250 ML 1000 ML IV (15:28)
[2023-10-10] MEDS: pantoprazole 40 mg SDV 80 MG IVP (15:43)
[2023-10-10] MEDS: sodium bicarbonate 50 MEQ in sodium chloride 0.45% 1,000 ML 100 MEQ IV (15:44)
[2023-10-10] MEDS: albuterol 2.5 mg/3 mL Neb 10 MG INHALATION (15:50)
--- NOTE | 2023-10-10 16:16 | P.CONIM_ITS ---
Providers/Reason For Consult 2 Consulting Physician/Specialty*: General surgery Reason for Consult*: Upper GI bleeding Primary Care Provider: Luis Schmid MD History of Present Illness History of Present Illness Chepe Tobias is a 68 year old male with multiple medical comorbidities and with history of chronic pain requiring multimodal therapy including ibuprofen on a daily basis who presents to the ER complaining of abdominal pain over the last 2 weeks that has worsened over the last 48 hours and melena, per patient report and report patient has been complaining him lack of appetite and upper abdominal pain for 2 weeks but today he felt weak and when he had a bowel movement it was noted to be completely black. Therefore decided to present to the emergency department. A CT scan done in the emergency department show evidence of distal gastric and proximal duodenal thickening with mucosal irregularity concerning for ulcer. Review of Systems 2 General: Reports: 10 or more systems reviewed and unremarkable except in HPI and below Medications/Allergies Home Medications Medication Instructions Recorded Confirmed Last Taken Type acetaminophen 500 mg tablet 1,000 mg PO BID 11/28/19 10/10/23 10/10/23 History (Tylenol Extra Strength) ascorbate calcium (vitamin C) 500 500 mg PO QAM 11/28/19 10/10/23 10/10/23 History mg tablet atenolol 25 mg tablet 25 mg PO QAM 11/28/19 10/10/23 10/10/23 History citalopram 40 mg tablet 40 mg PO QAM 11/28/19 10/10/23 10/10/23 History ferrous gluconate 324 mg (37.5 mg 324 mg PO QAM 11/28/19 10/10/23 10/10/23 History iron) tablet tramadol 50 mg tablet 100 mg PO BID 11/28/19 10/10/23 10/10/23 History celecoxib 100 mg capsule 100 mg PO BID 03/28/20 10/10/23 10/10/23 History irbesartan 300 mg tablet 300 mg PO QAM 09/10/21 10/10/23 10/10/23 History aspirin 325 mg tablet 325 mg PO QAM 10/10/23 10/10/23 10/10/23 History cyanocobalamin (vitamin B-12) 1,000 mcg PO QAM 10/10/23 10/10/23 10/10/23 History 1,000 mcg sublingual tablet gabapentin 600 mg tablet 600 mg PO Q6H 10/10/23 10/10/23 10/10/23 History ibuprofen 200 mg tablet 800 mg PO BID 10/10/23 10/10/23 10/10/23 History loratadine 10 mg tablet (Claritin) 10 mg PO BEDTIME 10/10/23 10/10/23 10/09/23 History memantine 10 mg tablet 10 mg PO QAM 10/10/23 10/10/23 10/10/23 History topiramate 25 mg tablet 25 mg PO BID 10/10/23 10/10/23 10/10/23 History Allergies Allergy/AdvReac Type Severity Reaction Status Date / Time No Known Allergies Allergy Verified 10/10/23 14:15 Current Medications Generic Name Dose Route Start Last Admin Trade Name Freq PRN Reason Stop Dose Admin Dextrose 250 mls @ 1,000 mls/hr 10/10/23 14:35 10/10/23 15:52 D10w IV Infused PRN PRN Infusion HYPOGLYCEMIA Sodium Bicarbonate 50 meq/ 1,050 mls @ 100 mls/hr 10/10/23 14:45 10/10/23 15:44 Sodium Chloride IV 100 mls/hr .[id number] RASHMI Administration PFSH Acute 2 PFSH: Medical History (Updated 10/10/23 @ 16:12 by Charlie Saenz DO) Spondylolisthesis, acquired Intervertebral disc disorder with radiculopathy of lumbosacral region Surgical History History of cholecystectomy Family History Family/Other Heart disease Social History Smoking and tobacco/nicotine status: former use of tobacco/nicotine Alcohol intake: former Substance/Drug Use: never Household members: significant other Marital status: Current occupational status: disabled Vitals/I&O/Wt Last Vital Signs Temp 98.3 F 10/10/23 13:48 Pulse 66 10/10/23 15:53 Resp 18 10/10/23 15:53 BP 127/72 10/10/23 14:19 Pulse Ox 97 10/10/23 15:53 O2 Del Method Room Air 10/10/23 15:53 10/10/23 10/10/23 10/10/23 06:59 14:59 22:59 Intake Total 750 / 750 Balance 750 / 750 Weight last 48 hrs Weight 220 lb Physical Exam 2 Narrative: General : Patient is well developed , no acute distress, oriented x3 Head : Normal cephalic, a-traumatic. Nose : Mucous membranes are without erythema. Lungs : Equal chest rise bilaterally, no use of accessory muscles, trachea is midline. CV : Rate and rhythm are normal. Abdomen : Soft, ND, NT, no g/r/m Extremities : No edema. Upper extremities are normal bilaterally. Back : non-tender to palpation, no CVA tenderness. Data 10/10/23 13:53 10/10/23 13:53 A&P Assessment and plan (1) Acute upper GI bleed: After complete history, physical examination and review of all available clinical data the following is my assessment. Patient has acute upper GI bleeding likely related to ulceration either at the level of the stomach or duodenum which most likely is caused by chronic consumption of ibuprofen. I think in this setting upper endoscopy is indicated for bleeding control. I have discussed the risk and benefits of upper endoscopy with the patient and family member including the risk of perforation of the esophagus, stomach, duodenum which may result in the need of surgical intervention and transfer to higher level of care. There is also risk for rebleeding and I have explained that if this is the case patient will need to be transferred to higher level of care for IR embolization versus GI evaluation. In the interim patient will be admitted to the ICU for monitoring, he will be started on twice a day PPI as well as sucralfate 4 times a day liquid. Plan is to proceed with endoscopy in the morning after resuscitation. Patient and family member agree. All other care per primary team. Coding Level of Care Code 00641 Diagnoses Acute upper GI bleed K92.2
--- NOTE | 2023-10-10 17:19 | P.HP_ITS ---
Providers/Chief Complaint 2 Primary Care Provider: Luis Schmid MD Chief Complaint: EPIG PAIN History of Present Illness Chepe Tobias is a 68 year old male with multiple medical comorbidities and with history of chronic pain requiring multimodal therapy with daily NSAIDs including ibuprofen, celecoxib, history of hypertension also on aspirin 325 mg oral daily who presents to the ER complaining of abdominal pain over the last 2 weeks that has worsened over the last 48 hours and melena, per patient report and report patient has been complaining him lack of appetite and upper abdominal pain for 2 weeks but today he felt weak and when he had a bowel movement it was noted to be completely black. Therefore decided to present to the emergency department. A CT scan done in the emergency department show evidence of distal gastric and proximal duodenal thickening with mucosal irregularity concerning for ulcer. Has had similar complaints in the past around 5 years ago but does not remember if he had been endoscopy at that time. He believes he was treated with medications. Patient received 80 mg of IV Protonix in the ER along with treatment for hyperkalemia. Review of Systems 2 General: Reports: 10 or more systems reviewed and unremarkable except in HPI and below Const: Denies: fever(s), chills, body aches, change in appetite, change in weight, malaise, night sweats, diaphoresis, change in sleep pattern, daytime sleepiness or snoring Eyes: Denies: change in vision, blurry vision, photophobia, eye discomfort or eye discharge ENMT: Denies: throat pain, enlarged tonsils, hoarseness, mouth pain, oral sores, dry mouth, tinnitus, nasal congestion or post nasal drip Card: Denies: chest pain, palpitations, irregular heart rhythm, edema, swelling of feet/ankles, lightheadedness, syncope, pre-syncope, dyspnea on exertion, orthopnea, leg pain with exertion or acrocyanosis Resp: Denies: dyspnea, productive cough, non-productive cough, wheezing, stridor, pain on inspiration, change in phlegm color, hemoptysis or chest congestion GI: Denies: abdominal pain, nausea, vomiting, hematemesis, coffee ground emesis, dysphagia, heartburn, diarrhea, constipation, bloating, GI cramping, change in bowel habits, pain on defecation, hematochezia or melena : Denies: flank pain, difficulty urinating, dysuria, urinary frequency, urinary urgency, urinary hesitancy, urinary dribbling, difficulty starting urination, change in urine stream, nocturia or hematuria Musc: Denies: neck pain, back pain, extremity pain, joint pain, joint swelling, joint redness, joint stiffness or limited range of motion Neuro: Denies: headache(s), numbness in extremities, weakness in extremities, sensory changes, lack of coordination, difficulty walking, frequent falls, dizziness, vertigo, confusion, Slurred speech present, difficulty communicating thoughts or seizure-like activity Psych: Denies: anxiety, depression, mood swings, panic attacks, hopelessness or irritability Endo: Denies: polyuria, polydipsia, tired all the time, cold intolerance, excessive sweating, flushing or heat intolerance [place]/Lymph: Denies: easy bruising or easy bleeding All/Imm: Denies: tongue swelling, facial swelling or acute wheezing Medications/Allergies Home Medications Medication Instructions Recorded Confirmed Last Taken Type acetaminophen 500 mg tablet 1,000 mg PO BID 11/28/19 10/10/23 10/10/23 History (Tylenol Extra Strength) ascorbate calcium (vitamin C) 500 500 mg PO QAM 11/28/19 10/10/23 10/10/23 History mg tablet atenolol 25 mg tablet 25 mg PO QA 11/28/19 10/10/23 10/10/23 History citalopram 40 mg tablet 40 mg PO QAM 11/28/19 10/10/23 10/10/23 History ferrous gluconate 324 mg (37.5 mg 324 mg PO QA 11/28/19 10/10/23 10/10/23 History iron) tablet tramadol 50 mg tablet 100 mg PO BID 11/28/19 10/10/23 10/10/23 History celecoxib 100 mg capsule 100 mg PO BID 03/28/20 10/10/23 10/10/23 History irbesartan 300 mg tablet 300 mg PO QAM 09/10/21 10/10/23 10/10/23 History aspirin 325 mg tablet 325 mg PO QAM 10/10/23 10/10/23 10/10/23 History cyanocobalamin (vitamin B-12) 1,000 mcg PO QAM 10/10/23 10/10/23 10/10/23 History 1,000 mcg sublingual tablet gabapentin 600 mg tablet 600 mg PO Q6H 10/10/23 10/10/23 10/10/23 History ibuprofen 200 mg tablet 800 mg PO BID 10/10/23 10/10/23 10/10/23 History loratadine 10 mg tablet (Claritin) 10 mg PO BEDTIME 10/10/23 10/10/23 10/09/23 History memantine 10 mg tablet 10 mg PO QAM 10/10/23 10/10/23 10/10/23 History topiramate 25 mg tablet 25 mg PO BID 10/10/23 10/10/23 10/10/23 History Allergies Allergy/AdvReac Type Severity Reaction Status Date / Time No Known Allergies Allergy Verified 10/10/23 14:15 PFSH Acute 2 PFSH: Medical History (Updated 10/10/23 @ 16:12 by Charlie Saenz DO) Spondylolisthesis, acquired Intervertebral disc disorder with radiculopathy of lumbosacral region Surgical History History of cholecystectomy Family History Family/Other Heart disease Social History Smoking and tobacco/nicotine status: former use of tobacco/nicotine Alcohol intake: former Substance/Drug Use: never Household members: significant other Marital status: Current occupational status: disabled Vitals/I&O/Wt Last Vital Signs Temp 98.3 F 10/10/23 13:48 Pulse 66 10/10/23 17:17 Resp 18 10/10/23 17:15 BP 105/63 10/10/23 17:17 Pulse Ox 100 10/10/23 17:15 O2 Del Method Room Air 10/10/23 15:53 10/10/23 10/10/23 10/10/23 06:59 14:59 22:59 Intake Total 750 / 750 Balance 750 / 750 Weight last 48 hrs Weight 99.79 kg Physical Exam 2 Narrative: General: No acute distress, AO x3, Dehydrated, diaphoretic HEENT: PERRLA, pupils bilaterally equal and reactive Chest: Normal vesicular breath sounds, no added sounds, equal good air entry bilaterally CVS: S1-S2 regular, no murmurs, no tachycardia, no gallops, no rubs Abdomen: Soft, nontender, no organomegaly, bowel sounds present Neuro: No focal deficits, no facial deformity, AO x3, power 5/5 in all limbs Data 10/10/23 13:53 10/10/23 13:53 A&P Assessment and plan (1) Acute upper GI bleed: Associated with melena. Repeat hemoglobin in evening. Consult surgery for possible endoscopy. NPO. IV Protonix twice daily, Carafate before meals and at bedtime. IV fluids with normal saline at 75 cc/h. Check iron panel, vitamin B12, folate levels. CT abdomen pelvis showing mild gastroenteritis. Mild leukocytosis. Most likely in setting of GI bleed. For now we will cover with Zosyn. Stool studies if possible. (2) Hyperkalemia: Received cocktail of medications including calcium gluconate, sodium bicarb, insulin 10 units along with D50 in the ER. Repeat BMP in few hours. Will treat accordingly. (3) Low back pain radiating to both legs: Plan Hypertension: Goal blood pressure less than 140/90 mmHg. Blood pressure soft. Hold off on antihypertensives for now including ARB and home dose of atenolol. Will monitor for tachycardia. Keep mean artery pressure over 65. Full code NPO. SCDs for DVT prophylaxis. Attestations 2 Medical Necessity Statement*: Admission for more than 2 midnights for management of melena, GI bleed leading to hypotension in a patient with chronic NSAIDs Diagnoses Acute upper GI bleed K92.2 Hyperkalemia E87.5 Low back pain radiating to both legs M54.50; M79.604; M79.605
[2023-10-10 17:35] LABS: Add Urine Microscopic? YES; Bilirubin Urine Neg (Negative); Blood Urine Neg (Negative); Glucose Urine UA Norm (Normal); Ketones Urine Negative (Negative); Leukocyte Esterase Urine Negative (Negative); Nitrate Urine Negative (Negative); Protein Urine 1+ (Negative); Specific Gravity, Urine 1.005 (1.005-1.030); Urine Appearance Clear (CLEAR); Urine Color Yellow (Yellow); Urobilinogen Urine Neg (Negative); pH Urine 5 (5-7)
[2023-10-10 17:36] LABS: RBC Urine RARE /hpf (0-2); Squamous Epithelial Cell Urine 0-4 /hpf (0-5); WBC Urine 0-4 /hpf (0-5)
[2023-10-10 17:37] LABS: Add Urine Culture? No; Bacteria Urine TRACE /hpf; Mucus Urine 1+ /hpf
[2023-10-10] MEDS: sodium chloride 0.9% 1,000 ML 75 ML IV (17:39)
[2023-10-10 17:59] LABS: Anion Gap 17.7 (5-19); Blood Urea Nitrogen 44 mg/dL (8-23); Calcium 9.1 mg/dL (8.5-10.5); Carbon Dioxide 21 mmol/L (22-29); Chloride 107 mmol/L (98-107); Creatinine Clr Calc Pharmacy 69.5663; Glomerular Filtration Rate 60.4 mL/min (90-130); Glucose 106 mg/dL (65-115); Iron 60 ug/dL (59-158); Osmolality Calculated 302 mOsm/kg (285-295); Percent Saturation 20.1 % (20-50); Potassium 5.7 mmol/L (3.5-5.1); Sodium 140 mmol/L (136-145); Thyroid Stimulating Hormone 0.75 uIU/mL (0.27-4.20); Total Iron Binding Capacity 298 mcg/dl; Unsaturated Iron Binding 238 ug/dL (112-347)
[2023-10-10 18:04] LABS: Vitamin B12 1557 pg/mL (232-1245)
[2023-10-10 19:54] LABS: Hematocrit 33.5 % (37-53)
[2023-10-10 20:23] LABS: Glucose Point of Care 106 mg/dL (70-110)
[2023-10-10] MEDS: gabapentin 300 mg Capsule 600 MG PO (20:27)
[2023-10-10] MEDS: sucralfate 1 gm/10 mL Oral Liq UDC PO (20:27)
[2023-10-10] MEDS: TRAMadol 50 mg Tablet 100 MG PO (20:27)
[2023-10-10] MEDS: topiramate 25 mg Tablet PO (20:27)
[2023-10-10] MEDS: piperacillin-tazobactam 3.375 GM in sodium chloride 0.9% (plus) 50 ML IV (20:32)
--- NOTE | 2023-10-10 21:45 | PC.NURSE ---
Maintenance Fluid The following orders active for maintenance fluids: NS @ 30 ml/hr, sodium bicarb at 100 ml/hr, and NS @75 ml/hr. Dr. Jackson contacted and order received to administer NS @ 30 ml/hr only. See MAR for details.
[2023-10-10] MEDS: sodium chloride 0.9% 100 mL Bag 50 ML IV (22:18)
[2023-10-11] VITALS (54 sets, daily range): BP systolic 83–166; BP diastolic 45–98; PULSE 56–81; RESP 12–22; TEMP 36.6–36.9; O2SAT 90–100; BMI 33.6
[2023-10-11 04:35] LABS: Basophils # 0.1 10^3/uL (0.0-0.1); Basophils % 0.8 %; Eosinophils # 0.2 10^3/uL (0.0-0.8); Eosinophils % 2.1 %; Hematocrit 33.1 % (37-53); Lymphocytes # 2.3 10^3/uL (0.8-4.8); Lymphocytes % 22.7 %; Mean Corpuscular Hemoglobin 31.7 pg (27-33); Mean Corpuscular Volume 99.1 fl (82-101); Monocytes # 0.7 10^3/uL (0.2-0.9); Monocytes % 6.8 %; Neutrophils # 6.86 10^3/uL (1.8-7.7); Neutrophils % 66.9 %; Nucleated Red Blood Cells % 0 %; Platelet Count 332 10^3/cmm (157-399); Red Blood Count 3.34 10^6/uL (3.85-5.65); Red Cell Distribution Width 12.2 % (12.1-15.1); White Blood Count 10.26 10^3/uL (3.29-11.43)
[2023-10-11] MEDS: pantoprazole 40 mg SDV IVP (04:47)
[2023-10-11] MEDS: piperacillin-tazobactam 3.375 GM in sodium chloride 0.9% (plus) 50 ML IV (04:47)
[2023-10-11 04:53] LABS: Estmated Average Glucose 100; Hemoglobin A1C 5.1 % (4.0-6.0)
[2023-10-11 04:56] LABS: Alanine Aminotransferase 14 U/L (0-41); Albumin Level 3.5 g/dL (3.5-5.2); Alkaline Phosphatase 75 U/L (40-130); Anion Gap 13.2 (5-19); Aspartate Amino Transferase 12 U/L (0-40); Blood Urea Nitrogen 36 mg/dL (8-23); Calcium 8.4 mg/dL (8.5-10.5); Carbon Dioxide 24 mmol/L (22-29); Chloride 109 mmol/L (98-107); Creatinine Clr Calc Pharmacy 84.9513; Globulin 2.5 g/dL (1.3-4.6); Glomerular Filtration Rate 74.5 mL/min (90-130); Glucose 91 mg/dL (65-115); Magnesium 2.2 mg/dL (1.7-2.3); Osmolality Calculated 302 mOsm/kg (285-295); Phosphorus 2.4 mg/dL (2.5-4.5); Potassium 4.2 mmol/L (3.5-5.1); Sodium 142 mmol/L (136-145); Total Bilirubin 0.6 mg/dL (0.15-1.2)
[2023-10-11 04:59] LABS: Cholesterol 136 mg/dL (0-200); HDL Cholesterol 20 mg/dL (60-100); LDL Cholesterol Calculated 87 mg/dL (50-129); LDL HDL Ratio 4.35 RATIO (0.00-3.22); Triglycerides 145 mg/dL (0-150)
[2023-10-11 05:09] LABS: Folate Level 8.3 ng/mL (4.5-32.2)
[2023-10-11] MEDS: citalopram 20 mg Tablet 40 MG PO (06:07)
[2023-10-11] MEDS: memantine 5 mg tablet 10 MG PO (06:07)
[2023-10-11] MEDS: sucralfate 1 gm/10 mL Oral Liq UDC PO ×2 (06:07→10:55)
--- NOTE | 2023-10-11 06:40 | PC.NURSE ---
Atenolol Patient's heart rate ranging from 52-65 with a current blood pressure of 107/59. Dr. Jackson contacted and order received to hold the 0600 dose of 25 mg atenolol PO. Dose held.
[2023-10-11] MEDS: gabapentin 300 mg Capsule 600 MG PO (08:13)
[2023-10-11] MEDS: topiramate 25 mg Tablet PO (08:13)
[2023-10-11] MEDS: TRAMadol 50 mg Tablet 100 MG PO (08:13)
--- NOTE | 2023-10-11 08:23 | ANES.PREANE2 ---
Pre-Anesthetic Assessment Height/Weight: Height 1.75 m Weight 103.419 kg Temp Pulse Resp BP Pulse Ox O2 Del Method 97.8 F 65 16 122/73 98 Room Air 10/11/23 07:15 10/11/23 08:15 10/11/23 08:15 10/11/23 08:15 10/11/23 08:15 10/11/23 06:15 Operation Date: 10/11/23 11:20 Proposed Procedures p EGD(Not Applicable) - Aiden Wooten MD Familial anesthetic complications: None Was Beta Sanju taken within 24 hours: N/A Was Clonidine taken within 24 hours: N/A Last intake: > 8hrs, denies nausea or any vomiting Social No alcohol and No tobacco Exam alert, oriented x 3, clear to auscultation bilaterally and regular rate & rhythm Airway Mallampati: Class IV Dentition: chipped Pulmonary Sleep Apnea CV/HEM Hypertension Anesthetic Plan ASA status: 3 Anesthesia: MAC Risk of > 500 ml blood loss (7ml/kg in children): No Medications/Allergies Home Medications Medication Instructions Recorded Confirmed Last Taken Type acetaminophen 500 mg tablet 1,000 mg PO BID 11/28/19 10/10/23 10/10/23 History (Tylenol Extra Strength) ascorbate calcium (vitamin C) 500 500 mg PO QAM 11/28/19 10/10/23 10/10/23 History mg tablet atenolol 25 mg tablet 25 mg PO QAM 11/28/19 10/10/23 10/10/23 History citalopram 40 mg tablet 40 mg PO QAM 11/28/19 10/10/23 10/10/23 History ferrous gluconate 324 mg (37.5 mg 324 mg PO QAM 11/28/19 10/10/23 10/10/23 History iron) tablet tramadol 50 mg tablet 100 mg PO BID 11/28/19 10/10/23 10/10/23 History celecoxib 100 mg capsule 100 mg PO BID 03/28/20 10/10/23 10/10/23 History irbesartan 300 mg tablet 300 mg PO QAM 09/10/21 10/10/23 10/10/23 History aspirin 325 mg tablet 325 mg PO QAM 10/10/23 10/10/23 10/10/23 History cyanocobalamin (vitamin B-12) 1,000 mcg PO QAM 10/10/23 10/10/23 10/10/23 History 1,000 mcg sublingual tablet gabapentin 600 mg tablet 600 mg PO Q6H 10/10/23 10/10/23 10/10/23 History ibuprofen 200 mg tablet 800 mg PO BID 10/10/23 10/10/23 10/10/23 History loratadine 10 mg tablet (Claritin) 10 mg PO BEDTIME 10/10/23 10/10/23 10/09/23 History memantine 10 mg tablet 10 mg PO QAM 10/10/23 10/10/23 10/10/23 History topiramate 25 mg tablet 25 mg PO BID 10/10/23 10/10/23 10/10/23 History Allergies Allergy/AdvReac Type Severity Reaction Status Date / Time No Known Allergies Allergy Verified 10/10/23 14:15 Current Medications Generic Name Dose Route Start Last Admin Trade Name Freq PRN Reason Stop Dose Admin Atenolol 25 mg 10/11/23 06:00 10/11/23 06:40 Atenolol 50 Mg Tablet PO Not Given QAM RASHMI Citalopram Hydrobromide 40 mg 10/11/23 06:00 10/11/23 06:07 Citalopram 20 Mg Tablet PO 40 mg QAM RASHMI Administration Gabapentin 600 mg 10/10/23 21:00 10/11/23 08:13 Gabapentin 300 Mg Capsule PO 600 mg TID RASHMI Administration Dextrose 250 mls @ 1,000 mls/hr 10/10/23 14:35 10/10/23 15:52 D10w IV Infused PRN PRN Infusion HYPOGLYCEMIA Sodium Chloride 1,000 mls @ 30 mls/hr 10/10/23 17:25 10/10/23 21:30 Sodium Chloride 0.9% IV 10/11/23 17:25 30 mls/hr .Q24H RASHMI Infusion Piperacillin Sod/Tazobactam 50 mls @ 12.5 mls/hr 10/10/23 21:00 10/11/23 04:47 Sod 3.375 gm/ Sodium Chloride IV 12.5 mls/hr Q8H RASHMI Administration Memantine 10 mg 10/11/23 06:00 10/11/23 06:07 Memantine 5 Mg Tablet PO 10 mg QAM RASHMI Administration Pantoprazole Sodium 40 mg 10/11/23 04:00 10/11/23 04:47 Pantoprazole 40 Mg Sdv IVP 40 mg Q12H RASHMI Administration Sodium Chloride 50 ml 10/10/23 20:41 10/10/23 22:18 Sodium Chloride 0.9% 100 Ml Bag IV 10/11/23 20:41 50 ml PRN PRN Administration Blood transfusion prime and flush Sucralfate 1 gm 10/10/23 21:00 10/11/23 06:07 Sucralfate 1 Gm/10 Ml Oral Liq Udc PO 1 gm AC&BEDTIME RASHMI Administration Topiramate 25 mg 10/10/23 20:01 10/11/23 08:13 Topiramate 25 Mg Tablet PO 25 mg BID RASHMI Administration Tramadol HCl 100 mg 10/10/23 20:01 10/11/23 08:13 Tramadol 50 Mg Tablet PO 100 mg BID RASHMI Administration [facility] Anesthesia Medical History (Updated 10/10/23 @ 16:12 by Charlie Saenz DO) Spondylolisthesis, acquired Intervertebral disc disorder with radiculopathy of lumbosacral region Surgical History History of cholecystectomy Family History Family/Other Heart disease Social History Smoking and tobacco/nicotine status: former use of tobacco/nicotine Alcohol intake: former Substance/Drug Use: never Household members: significant other Marital status: Current occupational status: disabled Data Anesthesia 10/11/23 03:56 10/11/23 03:56 Short CBC 10/10/23 10/10/23 10/11/23 Range/Units 13:53 19:25 03:56 WBC 13.38 H 10.26 (3.29-11.43) 10^3/uL Hgb 12.10 10.60 L 10.60 L (11.27-16.99) g/dL Hct 38.4 33.5 L 33.1 L (37-53) % MCV 98.5 99.1 (82-101) fl Plt Count 484 H 332 D (157-399) 10^3/cmm Neut % (Auto) 75.3 66.9 % Neut # (Auto) 10.06 H 6.86 (1.8-7.7) 10^3/uL BMP 10/10/23 10/10/23 10/10/23 13:53 13:53 13:53 Sodium 142 140 Potassium 6.0 H 5.7 H Chloride 109 H Carbon Dioxide BUN Creatinine Glucose Calcium 10/10/23 10/10/23 10/10/23 13:53 13:53 13:53 Sodium Potassium Chloride 107 Carbon Dioxide 22 21 L BUN 44 H 44 H Creatinine 1.2 Glucose Calcium 10/10/23 10/10/23 10/10/23 13:53 13:53 13:53 Sodium Potassium Chloride Carbon Dioxide BUN Creatinine 1.2 Glucose 118 H 106 Calcium 9.2 9.1 10/11/23 03:56 Sodium 142 Potassium 4.2 Chloride 109 H Carbon Dioxide 24 BUN 36 H Creatinine 1.0 Glucose 91 Calcium 8.4 L Liver Function 10/10/23 10/11/23 Range/Units 13:53 03:56 Total Bilirubin 0.3 0.6 (0.15-1.2) mg/dL AST 16 12 (0-40) U/L ALT 18 14 (0-41) U/L Alkaline Phosphatase 95 75 (40-130) U/L Albumin 4.0 3.5 (3.5-5.2) g/dL Urine 10/10/23 Range/Units 16:55 Urine Color Yellow (Yellow) Urine Appearance Clear (CLEAR) Urine pH 5 (5-7) Ur Specific [place] 1.005 (1.005-1.030) Urine Protein 1+ H (Negative) Urine Glucose (UA) Norm (Normal) Urine Ketones Negative (Negative) Urine Nitrate Negative (Negative) Urine Bilirubin Neg (Negative) Ur Leukocyte Esterase Negative (Negative) Urine RBC Rare (0-2) /hpf Urine WBC 0-4 H (0-5) /hpf Blood Bank 10/10/23 14:56 Blood Type O Positive Rho(D) Type Rh positive Antibody Screen Negative Coags 10/10/23 14:56 PT 14.50 INR 1.09 APTT 30.1 Cardiac Studies: No Data to Display
[2023-10-11] MEDS: EPINEPHrine 1 mg/mL INJ XX (10:24)
--- NOTE | 2023-10-11 10:29 | PM.MISC ---
Miscellaneous Note Purpose of Documentation: Update on Patient care Note: Upper endoscopy was done today. It showed evidence of extensive gastritis with erosions, in addition, there was a very large duodenal ulcer right past the area of the bulb, there was significant fibrinous material at the base of the ulcer and there was an exposed vessel. Tissue appeared very friable around the ulcer, I attempted injection of epinephrine in 4 quadrants around the exposed vessel but was unable to clip the vessel. Due to these findings I would recommend immediate transfer to higher level of care for evaluation by GI for repeat endoscopy and bleeding control. Patient has a 90 to 100% chance of rebleeding if no additional intervention is undertaken. In the meantime we will continue with high-dose PPI and will continue Carafate 4 times a day. Plan was communicated with ICU team. Family member was made aware.
--- NOTE | 2023-10-11 10:30 | ANE.PACU2 ---
Inpatient post-anesthesia follow up: Airway intact: Yes Vital signs: Temperature 98.4 F Pulse Rate [Orthos tatic 82 Standing] Pulse Rate [Orthos tatic 74 Sitting] Pulse Rate [Orthos tatic Lying] 66 Pulse Rate 81 Respiratory Rate 22 Blood Pressure [Or thostatic 99/70 Standing] Blood Pressure [Or thostatic 119/71 Sitting] Blood Pressure [Or thostatic 105/63 Lying] Blood Pressure 132/74 Pulse Oximetry 96 Oxygen Delivery Me thod Room Air Oxygen Flow Rate Fraction of Inspir ed Oxygen Hydration adequate: Yes Nausea and vomiting: No Pain level: 1 Mental status: Baseline
--- NOTE | 2023-10-11 11:18 | PM.DCS ---
Discharge Providers Date of Admission: 10/10/23 15:38 Date of Discharge: October 11, 2023 Attending Provider at Admission: Paul Rodríguez MD Attending Provider at Discharge: Paul Rodríguez MD Primary Care Provider: Luis Schmid MD Diagnoses at Discharge Discharge Diagnosis (1) Acute upper GI bleed: Status: Acute (2) Hyperkalemia: Status: Acute (3) Low back pain radiating to both legs: Status: Acute Reason for Visit Reason for Visit: EPIG PAIN Discharge Data Studies Completed and Pending Completed Studies During Hospitalization Category Date Time Status CT abdomen pelvis w con* [id number] Urgent Cat Scan 10/10/23 14:02 Completed Pending at discharge Category Date Time Status C.Diff PCR (Lab) Routine Lab 10/10/23 17:53 Ordered Lactoferrin Routine Lab 10/10/23 17:53 Ordered OVA and Parasites, Conc and PE Routine Lab 10/10/23 17:53 Ordered Salmonella / Shigella / Campy Routine Lab 10/10/23 17:53 Ordered Radiology Impressions Abdomen/Pelvis CT 10/10/23 14:02 IMPRESSION: Mucosal thickening of the distal stomach and proximal duodenum with associated mesenteric inflammatory stranding consistent with nonspecific gastritis/enteritis. There is contour irregularity of the mucosa in these regions concerning for ulcer formation. Laboratory Results WBC 10.26 10^3/uL (3.29-11.43) 10/11/23 03:56 RBC 3.34 10^6/uL (3.85-5.65) L 10/11/23 03:56 Hgb 10.60 g/dL (11.27-16.99) L 10/11/23 03:56 Hct 33.1 % (37-53) L 10/11/23 03:56 MCV 99.1 fl (82-101) 10/11/23 03:56 MCH 31.7 pg (27-33) 10/11/23 03:56 MCHC 32.0 g/dL (30-55) 10/11/23 03:56 RDW 12.2 % (12.1-15.1) 10/11/23 03:56 Plt Count 332 10^3/cmm (157-399) D 10/11/23 03:56 MPV 10.0 fL (7.4-10.4) 10/11/23 03:56 Neut % (Auto) 66.9 % 10/11/23 03:56 Lymph % (Auto) 22.7 % 10/11/23 03:56 [place] % (Auto) 6.8 % 10/11/23 03:56 Eos % (Auto) 2.1 % 10/11/23 03:56 Baso % (Auto) 0.8 % 10/11/23 03:56 Neut # (Auto) 6.86 10^3/uL (1.8-7.7) 10/11/23 03:56 Lymph # (Auto) 2.3 10^3/uL (0.8-4.8) 10/11/23 03:56 [place] # (Auto) 0.7 10^3/uL (0.2-0.9) 10/11/23 03:56 Eos # (Auto) 0.2 10^3/uL (0.0-0.8) 10/11/23 03:56 Baso # (Auto) 0.1 10^3/uL (0.0-0.1) 10/11/23 03:56 Nucleated RBC % (auto) 0 % 10/11/23 03:56 Nucleated RBCs # 0.0 /100WBC 10/11/23 03:56 PT 14.50 SECONDS (12.1-14.9) 10/10/23 14:56 INR 1.09 (0.8-1.2) 10/10/23 14:56 APTT 30.1 SECONDS (23.9-36.7) 10/10/23 14:56 Sodium 142 mmol/L (136-145) 10/11/23 03:56 Potassium 4.2 mmol/L (3.5-5.1) 10/11/23 03:56 Chloride 109 mmol/L (98-107) H 10/11/23 03:56 Carbon Dioxide 24 mmol/L (22-29) 10/11/23 03:56 Anion Gap 13.2 (5-19) 10/11/23 03:56 BUN 36 mg/dL (8-23) H 10/11/23 03:56 Creatinine 1.0 mg/dL (0.7-1.2) 10/11/23 03:56 GFR Calculation 74.5 mL/min (90-130) L 10/11/23 03:56 Glucose 91 mg/dL (65-115) 10/11/23 03:56 POC Glucose 106 mg/dL (70-110) 10/10/23 20:16 Estimat Average Glucose 100 10/11/23 03:56 Hemoglobin A1c 5.1 % (4.0-6.0) 10/11/23 03:56 Calculated Osmolality 302 mOsm/kg (285-295) H 10/11/23 03:56 Calcium 8.4 mg/dL (8.5-10.5) L 10/11/23 03:56 Phosphorus 2.4 mg/dL (2.5-4.5) L 10/11/23 03:56 Magnesium 2.2 mg/dL (1.7-2.3) 10/11/23 03:56 Iron 60 ug/dL (59-158) 10/10/23 13:53 TIBC 298 mcg/dl 10/10/23 13:53 % Saturation 20.1 % (20-50) 10/10/23 13:53 Unsat Iron Binding 238 ug/dL (112-347) 10/10/23 13:53 Total Bilirubin 0.6 mg/dL (0.15-1.2) 10/11/23 03:56 AST 12 U/L (0-40) 10/11/23 03:56 ALT 14 U/L (0-41) 10/11/23 03:56 Alkaline Phosphatase 75 U/L (40-130) 10/11/23 03:56 Ammonia 24 umol/L (16-60) 10/10/23 14:56 Total Protein 6.0 g/dL (6.6-8.7) L 10/11/23 03:56 Albumin 3.5 g/dL (3.5-5.2) 10/11/23 03:56 Globulin 2.5 g/dL (1.3-4.6) 10/11/23 03:56 Triglycerides 145 mg/dL (0-150) 10/11/23 03:56 Cholesterol 136 mg/dL (0-200) 10/11/23 03:56 LDL Cholesterol, Calc 87 mg/dL (50-129) 10/11/23 03:56 HDL Cholesterol 20 mg/dL (60-100) L 10/11/23 03:56 LDL/HDL Ratio 4.35 RATIO (0.00-3.22) H 10/11/23 03:56 Cholesterol/HDL Ratio 6.80 mg/dL (1.0-5.00) H 10/11/23 03:56 Lipase 70 U/L (13-60) H 10/10/23 13:53 Vitamin B12 1557 pg/mL (232-1245) H 10/10/23 13:53 Folate 8.3 ng/mL (4.5-32.2) 10/11/23 03:56 TSH 0.75 uIU/mL (0.27-4.20) 10/10/23 13:53 Urine Color Yellow (Yellow) 10/10/23 16:55 Urine Appearance Clear (CLEAR) 10/10/23 16:55 Urine pH 5 (5-7) 10/10/23 16:55 Ur Specific [place] 1.005 (1.005-1.030) 10/10/23 16:55 Urine Protein 1+ (Negative) H 10/10/23 16:55 Urine Glucose (UA) Norm (Normal) 10/10/23 16:55 Urine Ketones Negative (Negative) 10/10/23 16:55 Urine Blood Neg (Negative) 10/10/23 16:55 Urine Nitrate Negative (Negative) 10/10/23 16:55 Urine Bilirubin Neg (Negative) 10/10/23 16:55 Urine Urobilinogen Neg mg/dL (Negative) 10/10/23 16:55 Ur Leukocyte Esterase Negative (Negative) 10/10/23 16:55 Urine RBC Rare /hpf (0-2) 10/10/23 16:55 Urine WBC 0-4 /hpf (0-5) H 10/10/23 16:55 Ur Squamous Epith Cells 0-4 /hpf (0-5) H 10/10/23 16:55 Amorphous Sediment Not Reportable 10/10/23 16:55 Urine Bacteria Trace /hpf (NONE) 10/10/23 16:55 Hyaline Casts 5-10 /lpf H 10/10/23 16:55 Urine Mucus 1+ /hpf 10/10/23 16:55 Blood Type O Positive 10/10/23 14:56 Rho(D) Type Rh positive 10/10/23 14:56 Antibody Screen Negative 10/10/23 14:56 Crossmatch See Detail 10/10/23 14:56 Vitals Last Vital Signs Temp 97.8 F 10/11/23 07:15 Pulse 63 10/11/23 09:30 Resp 17 10/11/23 09:30 BP 142/79 10/11/23 09:30 Pulse Ox 98 10/11/23 09:30 O2 Del Method Room Air 10/11/23 08:31 Discharge Plan Discharge Patient Disposition: Home Condition: Stable Prescriptions: No Action celecoxib 100 mg capsule 100 mg PO BID tramadol 50 mg tablet 100 mg PO BID citalopram 40 mg tablet 40 mg PO QAM atenolol 25 mg tablet 25 mg PO QAM ferrous gluconate 324 mg (37.5 mg iron) tablet 324 mg PO QAM ascorbate calcium (vitamin C) 500 mg tablet 500 mg PO QAM acetaminophen [Tylenol Extra Strength] 500 mg tablet 1,000 mg PO BID irbesartan 300 mg tablet 300 mg PO QAM aspirin 325 mg Tablet 325 mg PO QAM topiramate 25 mg tablet 25 mg PO BID ibuprofen 200 mg Tablet 800 mg PO BID Vitamin B-12 1,000 mcg Tablet, Sublingual 1,000 mcg PO QAM Claritin 10 mg Tablet 10 mg PO BEDTIME memantine 10 mg tablet 10 mg PO QAM gabapentin 600 mg tablet 600 mg PO Q6H Discharge Orders: Transfer Out of Facility (Order); Ordered 10/11/23 Ordered By: Paul Rodríguez Referrals: Luis Schmid MD [Primary Care Provider] - Patient Instructions: GI Discharge Instructions, Opioid Safety, Pain Management Coding Level of Care Code Acute Code for g Fwd Diagnoses Acute upper GI bleed K92.2 Hyperkalemia E87.5 Low back pain radiating to both legs M54.50; M79.604; M79.605
--- NOTE | 2023-10-11 12:01 | PC.NURSE ---
Report called to Bri at [facility]. Pt will be transferring to [address] [place] [address] Bed 1.
--- NOTE | 2023-10-11 12:35 | PC.NURSE ---
[facility] transports pt to [facility] at this time.
--- NOTE | 2023-10-11 13:12 | P.TS_ITS ---
Transfer Summary Providers Date of Admission: 10/10/23 15:38 Date of Discharge/Transfer: 10/11/23 Attending Provider at Admission: Paul Rodríguez MD Attending Provider at Transfer: Paul Rodríguez MD Consults: Surgery: Dr. Tonio Saab Primary Care Provider: Luis Schmid MD Transfer Plans: Anticipated date of transfer: 10/11/23 . Receiving Facility: [facility] . Receiving Provider: Dr. Vegas . Diagnoses at Discharge Discharge Diagnosis (1) Acute upper GI bleed: Status: Acute (2) Hyperkalemia: Status: Acute (3) Low back pain radiating to both legs: Status: Acute Reason for Visit Reason for Visit EPIG PAIN Hospital Course Hospital Course Chepe Tobias is a 68 year old male with multiple medical comorbidities and with history of chronic pain requiring multimodal therapy with daily NSAIDs including ibuprofen, celecoxib, history of hypertension also on aspirin 325 mg oral daily who presents to the ER complaining of abdominal pain over the last 2 weeks that has worsened over the last 48 hours and melena, per patient report and report patient has been complaining him lack of appetite and upper abdominal pain for 2 weeks but today he felt weak and when he had a bowel movement it was noted to be completely black. Therefore decided to present to the emergency department. A CT scan done in the emergency department show evidence of distal gastric and proximal duodenal thickening with mucosal i rregularity concerning for ulcer. Has had similar complaints in the past around 5 years ago but does not remember if he had been endoscopy at that time. He believes he was treated with medications. Patient received 80 mg of IV Protonix in the ER along with treatment for hyperkalemia. Patient was admitted to the hospital further evaluation and management. Hyperkalemia resolved with the treatment. He did have episodes of soft blood pressure for which she required Yant of blood transfusion after which his hemoglobin remained stable and blood pressure is also improved. Surgery was consulted he underwent EGD on 10/10 which showed evidence of extensive gastritis with erosion, along with a very large duodenal ulcer right past the area of the bulb along with significant fibrinous material at the base of the ulcer and exposed vessel. Given the extent of the ulcer he was recommended to be transferred to a higher center for repeat EGD and further management with clinical trials nurse. Care were discussed in detail with the physician at [facility] who accepted the patient to be transferred under their care. He has been transferred in hemodynamically stable condition. Physical Exam Narrative: General: No acute distress, AO x3, HEENT: PERRLA, pupils bilaterally equal and reactive Chest: Normal vesicular breath sounds, no added sounds, equal good air entry bilaterally CVS: S1-S2 regular, no murmurs, no tachycardia, no gallops, no rubs Abdomen: Soft, nontender, no organomegaly, bowel sounds present Neuro: No focal deficits, no facial deformity, AO x3, power 5/5 in all limbs TS Data Studies Completed and Pending Pending at discharge Category Date Time Status C.Diff PCR (Lab) Routine Lab 10/10/23 17:53 Ordered Lactoferrin Routine Lab 10/10/23 17:53 Ordered OVA and Parasites, Conc and PE Routine Lab 10/10/23 17:53 Ordered Salmonella / Shigella / Campy Routine Lab 10/10/23 17:53 Ordered Completed Studies During Hospitalization Category Date Time Status CT abdomen pelvis w con* [id number] Urgent Cat Scan 10/10/23 14:02 Completed Laboratory Last Values WBC 10.26 10^3/uL (3.29-11.43) 10/11/23 03:56 RBC 3.34 10^6/uL (3.85-5.65) L 10/11/23 03:56 Hgb 10.60 g/dL (11.27-16.99) L 10/11/23 03:56 Hct 33.1 % (37-53) L 10/11/23 03:56 MCV 99.1 fl (82-101) 10/11/23 03:56 MCH 31.7 pg (27-33) 10/11/23 03:56 MCHC 32.0 g/dL (30-55) 10/11/23 03:56 RDW 12.2 % (12.1-15.1) 10/11/23 03:56 Plt Count 332 10^3/cmm (157-399) D 10/11/23 03:56 MPV 10.0 fL (7.4-10.4) 10/11/23 03:56 Neut % (Auto) 66.9 % 10/11/23 03:56 Lymph % (Auto) 22.7 % 10/11/23 03:56 [place] % (Auto) 6.8 % 10/11/23 03:56 Eos % (Auto) 2.1 % 10/11/23 03:56 Baso % (Auto) 0.8 % 10/11/23 03:56 Neut # (Auto) 6.86 10^3/uL (1.8-7.7) 10/11/23 03:56 Lymph # (Auto) 2.3 10^3/uL (0.8-4.8) 10/11/23 03:56 [place] # (Auto) 0.7 10^3/uL (0.2-0.9) 10/11/23 03:56 Eos # (Auto) 0.2 10^3/uL (0.0-0.8) 10/11/23 03:56 Baso # (Auto) 0.1 10^3/uL (0.0-0.1) 10/11/23 03:56 Nucleated RBC % (auto) 0 % 10/11/23 03:56 Nucleated RBCs # 0.0 /100WBC 10/11/23 03:56 PT 14.50 SECONDS (12.1-14.9) 10/10/23 14:56 INR 1.09 (0.8-1.2) 10/10/23 14:56 APTT 30.1 SECONDS (23.9-36.7) 10/10/23 14:56 Sodium 142 mmol/L (136-145) 10/11/23 03:56 Potassium 4.2 mmol/L (3.5-5.1) 10/11/23 03:56 Chloride 109 mmol/L (98-107) H 10/11/23 03:56 Carbon Dioxide 24 mmol/L (22-29) 10/11/23 03:56 Anion Gap 13.2 (5-19) 10/11/23 03:56 BUN 36 mg/dL (8-23) H 10/11/23 03:56 Creatinine 1.0 mg/dL (0.7-1.2) 10/11/23 03:56 GFR Calculation 74.5 mL/min (90-130) L 10/11/23 03:56 Glucose 91 mg/dL (65-115) 10/11/23 03:56 POC Glucose 106 mg/dL (70-110) 10/10/23 20:16 Estimat Average Glucose 100 10/11/23 03:56 Hemoglobin A1c 5.1 % (4.0-6.0) 10/11/23 03:56 Calculated Osmolality 302 mOsm/kg (285-295) H 10/11/23 03:56 Calcium 8.4 mg/dL (8.5-10.5) L 10/11/23 03:56 Phosphorus 2.4 mg/dL (2.5-4.5) L 10/11/23 03:56 Magnesium 2.2 mg/dL (1.7-2.3) 10/11/23 03:56 Iron 60 ug/dL (59-158) 10/10/23 13:53 TIBC 298 mcg/dl 10/10/23 13:53 % Saturation 20.1 % (20-50) 10/10/23 13:53 Unsat Iron Binding 238 ug/dL (112-347) 10/10/23 13:53 Total Bilirubin 0.6 mg/dL (0.15-1.2) 10/11/23 03:56 AST 12 U/L (0-40) 10/11/23 03:56 ALT 14 U/L (0-41) 10/11/23 03:56 Alkaline Phosphatase 75 U/L (40-130) 10/11/23 03:56 Ammonia 24 umol/L (16-60) 10/10/23 14:56 Total Protein 6.0 g/dL (6.6-8.7) L 10/11/23 03:56 Albumin 3.5 g/dL (3.5-5.2) 10/11/23 03:56 Globulin 2.5 g/dL (1.3-4.6) 10/11/23 03:56 Triglycerides 145 mg/dL (0-150) 10/11/23 03:56 Cholesterol 136 mg/dL (0-200) 10/11/23 03:56 LDL Cholesterol, Calc 87 mg/dL (50-129) 10/11/23 03:56 HDL Cholesterol 20 mg/dL (60-100) L 10/11/23 03:56 LDL/HDL Ratio 4.35 RATIO (0.00-3.22) H 10/11/23 03:56 Cholesterol/HDL Ratio 6.80 mg/dL (1.0-5.00) H 10/11/23 03:56 Lipase 70 U/L (13-60) H 10/10/23 13:53 Vitamin B12 1557 pg/mL (232-1245) H 10/10/23 13:53 Folate 8.3 ng/mL (4.5-32.2) 10/11/23 03:56 TSH 0.75 uIU/mL (0.27-4.20) 10/10/23 13:53 Urine Color Yellow (Yellow) 10/10/23 16:55 Urine Appearance Clear (CLEAR) 10/10/23 16:55 Urine pH 5 (5-7) 10/10/23 16:55 Ur Specific [place] 1.005 (1.005-1.030) 10/10/23 16:55 Urine Protein 1+ (Negative) H 10/10/23 16:55 Urine Glucose (UA) Norm (Normal) 10/10/23 16:55 Urine Ketones Negative (Negative) 10/10/23 16:55 Urine Blood Neg (Negative) 10/10/23 16:55 Urine Nitrate Negative (Negative) 10/10/23 16:55 Urine Bilirubin Neg (Negative) 10/10/23 16:55 Urine Urobilinogen Neg mg/dL (Negative) 10/10/23 16:55 Ur Leukocyte Esterase Negative (Negative) 10/10/23 16:55 Urine RBC Rare /hpf (0-2) 10/10/23 16:55 Urine WBC 0-4 /hpf (0-5) H 10/10/23 16:55 Ur Squamous Epith Cells 0-4 /hpf (0-5) H 10/10/23 16:55 Amorphous Sediment Not Reportable 10/10/23 16:55 Urine Bacteria Trace /hpf (NONE) 10/10/23 16:55 Hyaline Casts 5-10 /lpf H 10/10/23 16:55 Urine Mucus 1+ /hpf 10/10/23 16:55 Blood Type O Positive 10/10/23 14:56 Rho(D) Type Rh positive 10/10/23 14:56 Antibody Screen Negative 10/10/23 14:56 Crossmatch See Detail 10/10/23 14:56 Radiology Impressions Abdomen/Pelvis CT 10/10/23 14:02 IMPRESSION: Mucosal thickening of the distal stomach and proximal duodenum with associated mesenteric inflammatory stranding consistent with nonspecific gastritis/enteritis. There is contour irregularity of the mucosa in these regions concerning for ulcer formation. Recent Clincial Data Last Vital Signs Temp 98.4 F 10/11/23 10:30 Pulse 81 10/11/23 12:36 Resp 22 H 10/11/23 09:45 BP 132/74 10/11/23 12:36 Pulse Ox 96 10/11/23 12:36 O2 Del Method Room Air 10/11/23 08:31 Vital Signs Temp Pulse Resp BP Pulse Ox O2 Del Method 10/11/23 12:36 81 132/74 96 10/11/23 12:00 81 132/74 96 10/11/23 11:45 63 129/78 99 10/11/23 11:30 62 151/85 99 10/11/23 11:15 66 130/75 100 10/11/23 11:00 58 L 135/75 98 10/11/23 10:45 61 134/84 98 10/11/23 10:30 98.4 F 60 166/98 100 10/11/23 10:15 59 L 126/74 100 10/11/23 10:00 63 114/70 99 10/11/23 09:45 75 22 H 130/77 98 10/11/23 09:30 63 17 142/79 98 10/11/23 09:15 66 16 126/78 91 10/11/23 09:00 62 13 127/70 98 10/11/23 08:45 61 14 149/72 99 10/11/23 08:31 100 Room Air 10/11/23 08:30 65 17 149/79 96 10/11/23 08:15 65 16 122/73 98 10/11/23 08:00 56 L 14 123/71 96 10/11/23 07:45 58 L 13 137/76 99 10/11/23 07:30 71 18 115/67 10/11/23 07:15 97.8 F 57 L 13 115/70 97 10/11/23 07:00 58 L 12 122/66 97 10/11/23 06:45 57 L 13 107/59 98 10/11/23 06:30 61 15 126/61 100 10/11/23 06:15 69 13 100/58 97 Room Air 10/11/23 06:00 60 15 98 10/11/23 05:45 61 17 97 10/11/23 05:45 61 10/11/23 05:30 61 15 97 10/11/23 05:15 60 18 107/60 97 10/11/23 05:00 62 14 111/60 96 10/11/23 04:45 59 L 14 83/45 97 10/11/23 04:30 59 L 18 100/54 97 10/11/23 04:15 59 L 13 114/66 97 10/11/23 04:00 71 18 116/62 99 10/11/23 03:48 98.2 F 10/11/23 03:45 73 17 100/52 97 10/11/23 03:30 63 15 105/64 95 10/11/23 03:15 59 L 12 115/64 94 10/11/23 03:00 70 19 H 98/58 90 10/11/23 02:45 59 L 17 95/55 95 10/11/23 02:30 59 L 17 116/61 94 10/11/23 02:15 60 18 113/64 96 10/11/23 02:00 58 L 16 112/64 96 10/11/23 01:45 59 L 16 101/63 97 10/11/23 01:30 58 L 16 99/78 97 10/11/23 01:15 57 L 18 125/72 98 Intake & Output/Weight 10/09/23 10/10/23 10/11/23 10/12/23 06:59 06:59 06:59 06:59 Intake Total 2888.75 / 2888.75 50 / 50 Output Total 600 / 600 250 / 250 Balance 2288.75 / 2288.75 -200 / -200 Weight 103.419 kg 103.419 kg Vitals Last Vital Signs Temp 98.4 F 10/11/23 10:30 Pulse 81 10/11/23 12:36 Resp 22 H 10/11/23 09:45 BP 132/74 10/11/23 12:36 Pulse Ox 96 10/11/23 12:36 O2 Del Method Room Air 10/11/23 08:31 TS Medications Medications Discontinued Medications Acetaminophen (Acetaminophen 325 Mg Tablet) 650 mg PO Q6H PRN PRN Reason: Mild/Mod Pain Or Temp >/= 101 Albuterol Sulfate (Albuterol 2.5 Mg/3 Ml Neb) 10 mg INHALATION ONCE ONE Stop: 10/10/23 14:36 Last Admin: 10/10/23 15:50 Dose: 10 mg Atenolol (A[facility]olol 50 Mg Tablet) [facility] [place] Admin: 10/11/23 06:40 Dose: Not Given Bisacodyl (Bisacodyl 5 Mg Tablet) 10 mg PO DAILY PRN; Protocol PRN Reason: Constipation (see protocol) Calcium Gluconate (Calcium Gluconate 0.1 Gm/Ml 10% Sdv 10ml) 1 gm IVP ONCE ONE Stop: 10/10/23 14:30 Last Admin: 10/10/23 15:27 Dose: 1 gm Citalopram Hydrobromide (Citalopram 20 Mg Tablet) [facility] [place] Admin: 10/11/23 06:07 Dose: 40 mg Epinephrine HCl (Epinephrine 1 Mg/Ml Inj) 1 mg XX ONCE ONE Stop: 10/11/23 10:23 Last Admin: 10/11/23 10:24 Dose: 1 mg Gabapentin (Gabapentin 300 Mg Capsule) 600 mg PO TID [facility] Last Admin: 10/11/23 08:13 Dose: 600 mg Sodium Chloride (Sodium Chloride 0.9%) 1,000 mls @ 999 mls/hr IV .Q1H1M ONE Stop: 10/10/23 14:52 Last Infusion: 10/10/23 19:03 Dose: Infused Dextrose (D10w) 250 mls @ 1,000 mls/hr IV PRN PRN PRN Reason: HYPOGLYCEMIA Last Infusion: 10/10/23 15:52 Dose: Infused Sodium Bicarbonate 50 meq/ (Sodium Chloride) 1,050 mls @ 100 mls/hr IV .[id number] [facility] Last Infusion: 10/10/23 17:00 Dose: Infused Sodium Chloride (Sodium Chloride 0.9%) 1,000 mls @ 30 mls/hr IV .Q24H ONE Stop: 10/11/23 16:10 Last Admin: 10/10/23 22:24 Dose: Not Given Sodium Chloride (Sodium Chloride 0.9%) 1,000 mls @ 30 mls/hr IV .Q24H RASHMI Stop: 10/11/23 17:25 Last Infusion: 10/10/23 21:30 Dose: 30 mls/hr Piperacillin Sod/Tazobactam (Sod 3.375 gm/ Sodium Chloride) 50 mls @ 0 mls/hr [id number] CONT RASHMI; Protocol Piperacillin Sod/Tazobactam (Sod 3.375 gm/ Sodium Chloride) 50 mls @ 12.5 mls/hr IV Q8H [facility] Last Infusion: 10/11/23 09:04 Dose: Infused Insulin Human Regular (Insulin Regular-Human 100 Units/1 Ml) 10 unit IVP ONCE ONE Stop: 10/10/23 14:36 Last Admin: 10/10/23 15:27 Dose: 10 unit Iohexol (Iohexol 350 Mg/Ml 500 Ml Btl (Per Ml)) 0 ml IV ONCE ONE Stop: 10/10/23 14:46 Last Admin: 10/10/23 14:46 Dose: 100 ml Lactulose (Lactulose Oral Liq 20 Gm/30 Ml Udc) 10 gm PO DAILY PRN; Protocol PRN Reason: Constipation (see protocol) Lidocaine HCl (Lidocaine 1% Inj 10 Ml (Per Ml)) 0.1 ml INTRADERMA ONCE ONE Stop: 10/10/23 16:12 Last Admin: 10/10/23 21:10 Dose: Not Given Magnesium Hydroxide (Magnesium Hydroxide 30 Ml Udc) 30 ml PO DAILY PRN; Protocol PRN Reason: Constipation (see protocol) Memantine (Memantine 5 Mg Tablet) [facility] [place] Last Admin: 10/11/23 06:07 Dose: 10 mg Morphine Sulfate (Morphine 4 Mg/Ml Sdv 1 Ml) 2 mg IVP Q4H PRN PRN Reason: SEVERE PAIN Ondansetron HCl (Ondansetron 2 Mg/Ml Sdv 2 Ml) 4 mg IVP ONCE ONE Stop: 10/10/23 14:03 Last Admin: 10/10/23 14:12 Dose: 4 mg Ondansetron HCl (Ondansetron 2 Mg/Ml Sdv 2 Ml) 4 mg IVP Q8H PRN PRN Reason: vomiting, or N/V if npo Pantoprazole Sodium (Pantoprazole 40 Mg Sdv) 80 mg IVP ONCE ONE Stop: 10/10/23 15:25 Last Admin: 10/10/23 15:43 Dose: 80 mg Pantoprazole Sodium (Pantoprazole 40 Mg Sdv) 80 mg IVP ONCE ONE Stop: 10/10/23 16:01 Last Admin: 10/10/23 15:51 Dose: Not Given Pantoprazole Sodium (Pantoprazole 40 Mg Sdv) 40 mg IVP Q12H [facility] Last Admin: 10/11/23 04:47 Dose: 40 mg Propofol (Propofol 10 Mg/Ml Sdv 20 Ml) Confirm Administered Dose 200 mg .ROUTE .STK-MED ONE Stop: 10/11/23 10:30 Sodium Chloride (Sodium Chloride 0.9% 100 Ml Bag) 50 ml IV PRN PRN PRN Reason: Blood transfusion prime and flush Stop: 10/11/23 20:41 Last Admin: 10/10/23 22:18 Dose: 50 ml Sucralfate (Sucralfate 1 Gm/10 Ml Oral Liq Udc) 1 gm PO AC&BEDTIME [facility] Last Admin: 10/11/23 10:55 Dose: 1 gm Topiramate (Topiramate 25 Mg Tablet) 25 mg PO BID [facility] Last Admin: 10/11/23 08:13 Dose: 25 mg Tramadol HCl (Tramadol 50 Mg Tablet) 100 mg PO BID [facility] Last Admin: 10/11/23 08:13 Dose: 100 mg Allergies No Known Allergies Allergy (Verified 10/10/23 14:15) Home Medications acetaminophen 500 mg tablet (Tylenol Extra Strength) 1,000 mg PO BID 11/28/19 [History Confirmed 10/10/23] ascorbate calcium (vitamin C) 500 mg tablet 500 mg PO QAM 11/28/19 [History Confirmed 10/10/23] atenolol 25 mg tablet 25 mg PO QA 11/28/19 [History Confirmed 10/10/23] citalopram 40 mg tablet 40 mg PO [facility] 11/28/19 [History Confirmed 10/10/23] ferrous gluconate 324 mg (37.5 mg iron) tablet 324 mg PO QAM 11/28/19 [History Confirmed 10/10/23] tramadol 50 mg tablet 100 mg PO BID 11/28/19 [History Confirmed 10/10/23] celecoxib 100 mg capsule 100 mg PO BID 03/28/20 [History Confirmed 10/10/23] irbesartan 300 mg tablet 300 mg PO QAM 09/10/21 [History Confirmed 10/10/23] aspirin 325 mg tablet 325 mg PO QAM 10/10/23 [History Confirmed 10/10/23] cyanocobalamin (vitamin B-12) 1,000 mcg sublingual tablet 1,000 mcg PO QAM 10/10/23 [History Confirmed 10/10/23] gabapentin 600 mg tablet 600 mg PO Q6H 10/10/23 [History Confirmed 10/10/23] ibuprofen 200 mg tablet 800 mg PO BID 10/10/23 [History Confirmed 10/10/23] loratadine 10 mg tablet (Claritin) 10 mg PO BEDTIME 10/10/23 [History Confirmed 10/10/23] memantine 10 mg tablet 10 mg PO QAM 10/10/23 [History Confirmed 10/10/23] topiramate 25 mg tablet 25 mg PO BID 10/10/23 [History Confirmed 10/10/23] Discharge Plan Discharge Patient Disposition: Home Condition: Stable Prescriptions: No Action celecoxib 100 mg capsule 100 mg PO BID tramadol 50 mg tablet 100 mg PO BID citalopram 40 mg tablet 40 mg PO QAM atenolol 25 mg tablet 25 mg PO QAM ferrous gluconate 324 mg (37.5 mg iron) tablet 324 mg PO QAM ascorbate calcium (vitamin C) 500 mg tablet 500 mg PO QAM acetaminophen [Tylenol Extra Strength] 500 mg tablet 1,000 mg PO BID irbesartan 300 mg tablet 300 mg PO QAM aspirin 325 mg Tablet 325 mg PO QAM topiramate 25 mg tablet 25 mg PO BID ibuprofen 200 mg Tablet 800 mg PO BID Vitamin B-12 1,000 mcg Tablet, Sublingual 1,000 mcg PO QAM Claritin 10 mg Tablet 10 mg PO BEDTIME memantine 10 mg tablet 10 mg PO QAM gabapentin 600 mg tablet 600 mg PO Q6H Discharge Orders: Transfer Out of Facility (Order); Ordered 10/11/23 Ordered By: Paul Rodríguez Referrals: Luis Schmid MD [Primary Care Provider] - Discharge Diet: As Directed Discharge Activity: Resume usual activity and Increase activity as tolerated Patient Instructions: GI Discharge Instructions, Opioid Safety, Pain Management Transfer Attestations Time Spent in Transfer Care: critical care time (Arranging transfer, transfusing hemoglobin, monitor vitals) Critical Care Time (min): 50 Specific Discharge Activities: educating patient, educating and/or supporting family/caregiver, discussing with pcp/other providers, documenting/other paperwork and evaluating patient/reviewing data Quality Metrics Clinical Quality Measures [ No reported AMI, CVA or VTE this stay] Coding Level of Care Code Critical Care >/= 30 minutes Critical care time (in minutes): 50 The high probability of a clinically significant, sudden or life threatening deterioration, as referenced in this documentation, required my full and direct attention, intervention and personal management. The critical care time shown is in addition to time spent performing any reported separately billable procedures and includes the following: [x] Data and vital sign review and interpretation [x ] Patient assessment, examination and intervention [x] Medication orders and management [x] Patient/Family updates as able [x] Care Coordination and Documentation. Diagnoses Acute upper GI bleed K92.2 Hyperkalemia E87.5 Low back pain radiating to both legs M54.50; M79.604; M79.605
== END 2023-10-11 12:38 | disposition short-term general hospital (02) | DRG 384 ==
LOC: ER 16:12 → ICU 17:56
PROVIDERS: Physician Assistant; Surgery; Admitting Provider Student in an Organized Health Care Education/Training Program; Emergency Provider Family Medicine; PCP Family Medicine; Visit Provider Student in an Organized Health Care Education/Training Program
PROC: 0DJ08ZZ Inspection of Upper Intestinal Tract, Via Natural or Artificial Opening Endoscopic (ICD-10-PCS; CPT 43235; principal; 2023-10-11 11:20)
DX: K26.9 Duodenal ulcer, unspecified as acute or chronic, without hemorrhage or perforation (principal); K29.70 Gastritis, unspecified, without bleeding; K92.2 Gastrointestinal hemorrhage, unspecified; E87.5 Hyperkalemia; M54.50 Low back pain, unspecified; G89.29 Other chronic pain; Z79.1 Long term (current) use of non-steroidal anti-inflammatories (NSAID); Z79.82 Long term (current) use of aspirin; I10 Essential (primary) hypertension; Z87.891 Personal history of nicotine dependence
CPT/HCPCS: 36415; 36416; 36430; 43255; 74177; 80048; 80053; 80061; 81001; 82140; 82607; 82746; 82962; 83036; 83540; 83550; 83690; 83735; 84100; 84443; 85014; 85018; 85025; 85610; 85730; 86850; 86900; 86920; 93005; 94640; 94664; 96365; 96375; 96376; 99285; C9113; J0171; J0612; J1815; J2405; J2543; J2704; J7030; J7613; J7799; P9040; Q9967

== ENCOUNTER 2023-10-28 14:59 | Emergency (ER) | payer MEDICARE, SELFPAY ==
[2023-10-28 15:01] VITALS: BP 140/83; PULSE 57; RESP 18; TEMP 36.7; O2SAT 97; BMI 32.5
--- NOTE | 2023-10-28 15:20 | ED_ITS ---
HPI - GI Bleed 2 General: Chief complaint: GI Bleed Stated complaint: GI Bleed Time Seen by Provider: 10/28/23 15:02 Source: patient Mode of arrival: ambulatory Limitations: no limitations History of Present Illness: 68-year-old male has had a history of ma ssive GI bleeds he had 2 admissions to [place] and had to have an IR procedure 2 weeks ago she states that since being home he is has had issues but today had a very large bloody bowel movement. He had some lightheadedness after that as well. Denies any vomiting denies any pain Associated symptoms: Denies abdominal pain, chills, fever(s), headache(s), nausea, rash or vomiting Review of Systems 2 Const: Denies: fever(s), chills, body aches or change in appetite ENMT: Denies: throat pain or dental pain Card: Denies: chest pain Resp: Denies: dyspnea GI: Reports: hematochezia; Denies: abdominal pain, nausea, vomiting or diarrhea : Denies: dysuria Musc: Denies: neck pain or back pain Skin/Breast: Denies: rash Neuro: Denies: headache(s) PFSH ED 2 PFSH: Medical History (Updated 10/28/23 @ 17:05 by Linsey Falcon MD) Spondylolisthesis, acquired Intervertebral disc disorder with radiculopathy of lumbosacral region Surgical History History of cholecystectomy Family History Family/Other Heart disease Social History Smoking and tobacco/nicotine status: former use of tobacco/nicotine Alcohol intake: former Substance/Drug Use: never Household members: significant other Marital status: Current occupational status: disabled Physical Exam 2 Const: COMMON NORMALS: no acute distress, patient oriented x3 and healthy appearing HENMT: COMMON NORMALS: normocephalic and atraumatic HEAD & SCALP: n ormocephalic and atraumatic Neck/C-Spine: COMMON NORMALS: full ROM and supple Chest: COMMONS NORMALS: normal inspection of the chest Resp: COMMON NORMALS: normal respiratory effort Cardio: COMMON NORMALS: regular rate, regular rhythm and No murmurs present (Cardio) RATE: regular rate RHYTHM: regular rhythm GI: COMMON NORMALS: Normal to inspection, nondistended, normoactive bowel sounds present, Soft to palpation, non-tender and no masses PALPATION: Yes Soft to palpation OTHER: Hemoccult positive Extremity: COMMON NORMALS: normal to inspection and full ROM Neuro: COMMON NORMALS: patient oriented x3, moves all extremities and no focal motor deficits Psych: COMMON NORMALS: mental status grossly normal, Normal thought process present and cooperative THOUGHT PROCESS: Normal thought process present Skin: COMMON NORMALS: no rashes or lesions noted and no wounds GENERAL SKIN EXAM: no rashes or lesions noted Course 2 Vital Signs: Vital signs: Vital Signs Temperature 98.1 F 10/28/23 15:01 Pulse Rate 60 10/28/23 15:21 Respiratory Rate 18 10/28/23 15:01 Blood Pressure 148/93 10/28/23 15:21 Pulse Oximetry 98 10/28/23 15:21 Oxygen Delivery Me thod Room Air 10/28/23 15:01 MDM - GI Bleed Medical Decision Making Patient presents with a lower GI bleed his rectal exam here showed brown stools it was Hemoccult positive his hemoglobin here is 9 BUN to creatinine ratio was normal he had no hypotension here. [facility] do not have any beds and to be a 1 to 2-day wait. I did offer patient admission here and spoke to his she states that his blood pressures here have been stable and he has not had any bloody bowel movements she felt comfortable taking him home and watch him at home informed if he has any more blood in his stools she is return immediately she understands agrees to plan Medical Records I reviewed the patient's medical records. Lab Data I reviewed the patient's lab results. 10/28/23 15:44 10/28/23 15:44 Laboratory Results WBC 5.10 10^3/uL (3.29-11.43) 10/28/23 15:44 Corrected WBC Cancelled 10/28/23 14:41 RBC 2.98 10^6/uL (3.85-5.65) L 10/28/23 15:44 Hgb 9.00 g/dL (11.27-16.99) L 10/28/23 15:44 Hct 30.0 % (37-53) L 10/28/23 15:44 MCV 100.7 fl (82-101) 10/28/23 15:44 MCH 30.2 pg (27-33) 10/28/23 15:44 MCHC 30.0 g/dL (30-55) 10/28/23 15:44 RDW 15.3 % (12.1-15.1) H 10/28/23 15:44 Plt Count 312 10^3/cmm (157-399) 10/28/23 15:44 MPV 9.8 fL (7.4-10.4) 10/28/23 15:44 Gran % Cancelled 10/28/23 14:41 Neut % (Auto) 64.6 % 10/28/23 15:44 Lymph % (Auto) 25.1 % 10/28/23 15:44 [place] % (Auto) 6.7 % 10/28/23 15:44 Eos % (Auto) 2.2 % 10/28/23 15:44 Baso % (Auto) 1.2 % 10/28/23 15:44 Neut # (Auto) 3.30 10^3/uL (1.8-7.7) 10/28/23 15:44 Lymph # (Auto) 1.3 10^3/uL (0.8-4.8) 10/28/23 15:44 [place] # (Auto) 0.3 10^3/uL (0.2-0.9) 10/28/23 15:44 Eos # (Auto) 0.1 10^3/uL (0.0-0.8) 10/28/23 15:44 Baso # (Auto) 0.1 10^3/uL (0.0-0.1) 10/28/23 15:44 Absolute Gran (auto) Cancelled 10/28/23 14:41 Nucleated RBC % (auto) 0 % 10/28/23 15:44 Nucleated RBCs # 0.0 /100WBC 10/28/23 15:44 PT 13.90 SECONDS (12.1-14.9) 10/28/23 15:44 INR 1.04 (0.8-1.2) 10/28/23 15:44 Sodium 138 mmol/L (136-145) 10/28/23 15:44 Potassium 4.6 mmol/L (3.5-5.1) 10/28/23 15:44 Chloride 107 mmol/L (98-107) 10/28/23 15:44 Carbon Dioxide 23 mmol/L (22-29) 10/28/23 15:44 Anion Gap 12.6 (5-19) 10/28/23 15:44 BUN 6 mg/dL (8-23) L 10/28/23 15:44 Creatinine 0.8 mg/dL (0.7-1.2) 10/28/23 15:44 GFR Calculation 96.4 mL/min (90-130) 10/28/23 15:44 Glucose 89 mg/dL (65-115) 10/28/23 15:44 Calculated Osmolality 283 mOsm/kg (285-295) L 10/28/23 15:44 Calcium 8.7 mg/dL (8.5-10.5) 10/28/23 15:44 Total Bilirubin 0.2 mg/dL (0.15-1.2) 10/28/23 15:44 AST 15 U/L (0-40) 10/28/23 15:44 ALT 12 U/L (0-41) 10/28/23 15:44 Alkaline Phosphatase 85 U/L (40-130) 10/28/23 15:44 Total Protein 6.3 g/dL (6.6-8.7) L 10/28/23 15:44 Albumin 3.7 g/dL (3.5-5.2) 10/28/23 15:44 Globulin 2.6 g/dL (1.3-4.6) 10/28/23 15:44 Blood Type O Positive 10/28/23 15:44 Rho(D) Type Rh positive 10/28/23 15:44 Antibody Screen Negative 10/28/23 15:44 No radiology studies performed this visit Discharge Plan Discharge Patient Disposition: Home Clinical Impression: Acute lower GI bleeding Condition: Stable Prescriptions: No Action celecoxib 100 mg capsule 100 mg PO BID tramadol 50 mg tablet 100 mg PO BID citalopram 40 mg tablet 40 mg PO QAM atenolol 25 mg tablet 25 mg PO QAM ferrous gluconate 324 mg (37.5 mg iron) tablet 324 mg PO QAM ascorbate calcium (vitamin C) 500 mg tablet 500 mg PO QAM acetaminophen [Tylenol Extra Strength] 500 mg tablet 1,000 mg PO BID irbesartan 300 mg tablet 300 mg PO QAM aspirin 325 mg Tablet 325 mg PO QAM topiramate 25 mg tablet 25 mg PO BID ibuprofen 200 mg Tablet 800 mg PO BID Vitamin B-12 1,000 mcg Tablet, Sublingual 1,000 mcg PO QAM Claritin 10 mg Tablet 10 mg PO BEDTIME memantine 10 mg tablet 10 mg PO QAM gabapentin 600 mg tablet 600 mg PO Q6H Discharge Orders: Discharge ED (Routine); Ordered 10/28/23 Ordered By: Linsey Falcon Referrals: Luis Schmid MD [Primary Care Provider] - 1-3 days Discharge Diet: Advance as tolerated Discharge Activity: Resume usual activity Patient Instructions: Rectal Bleeding (ED) Coding Level of Care Code ED 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
[2023-10-28 15:21] VITALS: BP 148/93; PULSE 60; O2SAT 98
[2023-10-28 16:01] LABS: Basophils # 0.1 10^3/uL (0.0-0.1); Basophils % 1.2 %; Eosinophils # 0.1 10^3/uL (0.0-0.8); Eosinophils % 2.2 %; Lymphocytes # 1.3 10^3/uL (0.8-4.8); Lymphocytes % 25.1 %; Mean Corpuscular Hemoglobin 30.2 pg (27-33); Mean Corpuscular Volume 100.7 fl (82-101); Mean Platelet Volume 9.8 fL (7.4-10.4); Monocytes # 0.3 10^3/uL (0.2-0.9); Monocytes % 6.7 %; Neutrophils % 64.6 %; Nucleated Red Blood Cells % 0 %; Platelet Count 312 10^3/cmm (157-399); Red Blood Count 2.98 10^6/uL (3.85-5.65); Red Cell Distribution Width 15.3 % (12.1-15.1)
[2023-10-28 16:18] LABS: INR 1.04 (0.8-1.2)
[2023-10-28 16:20] LABS: Alanine Aminotransferase 12 U/L (0-41); Albumin Level 3.7 g/dL (3.5-5.2); Alkaline Phosphatase 85 U/L (40-130); Anion Gap 12.6 (5-19); Aspartate Amino Transferase 15 U/L (0-40); Blood Urea Nitrogen 6 mg/dL (8-23); Calcium 8.7 mg/dL (8.5-10.5); Carbon Dioxide 23 mmol/L (22-29); Chloride 107 mmol/L (98-107); Creatinine Clr Calc Pharmacy 104.3494; Globulin 2.6 g/dL (1.3-4.6); Glomerular Filtration Rate 96.4 mL/min (90-130); Glucose 89 mg/dL (65-115); Osmolality Calculated 283 mOsm/kg (285-295); Potassium 4.6 mmol/L (3.5-5.1); Sodium 138 mmol/L (136-145); Total Bilirubin 0.2 mg/dL (0.15-1.2); Total Protein 6.3 g/dL (6.6-8.7)
[2023-10-28 17:20] VITALS: BP 148/93; PULSE 60; O2SAT 98
== END 2023-10-28 17:10 | disposition home or self-care (01) ==
PROVIDERS: Emergency Provider Emergency Medicine; PCP Family Medicine
DX: K92.2 Gastrointestinal hemorrhage, unspecified (principal); Z79.82 Long term (current) use of aspirin; Z87.891 Personal history of nicotine dependence
CPT/HCPCS: 36415; 80053; 85025; 85610; 86850; 86900; 99283

== ENCOUNTER → 2024-02-22 10:51 | Outpatient (BNVA) | payer MEDICARE, SELFPAY | PROVIDERS: PCP Family Medicine; Visit Provider Podiatrist Foot & Ankle Surgery | DX: L60.3 Nail dystrophy (principal); L60.0 Ingrowing nail | CPT/HCPCS: 99203 ==

== ENCOUNTER → 2024-03-01 13:23 | Outpatient (BNVA) | payer MEDICARE, SELFPAY | PROVIDERS: PCP Family Medicine; Visit Provider Podiatrist Foot & Ankle Surgery | DX: L60.0 Ingrowing nail (principal); L60.3 Nail dystrophy | CPT/HCPCS: 11750; A6219 ==

== ENCOUNTER → 2024-03-15 10:42 | Outpatient (BNVA) | payer MEDICARE, SELFPAY | PROVIDERS: PCP Family Medicine; Visit Provider Podiatrist Foot & Ankle Surgery | DX: L60.3 Nail dystrophy (principal); L60.0 Ingrowing nail | CPT/HCPCS: 99213 ==